=== PATIENT | male | born 1945 | race Caucasian/White ===

== ENCOUNTER → 2021-08-03 11:31 | Outpatient (CLI) | payer MEDICARE, SELFPAY ==
[2021-08-03 18:59] LABS: INR 1.2 (0.9-1.3); Prothrombin Time 13.9 SECONDS (10.1-12.7)
[2021-08-03 19:11] LABS: Alanine Aminotransferase 26 IU/L (<50); Albumin 3.7 g/dL (3.5-5.0); Albumin Globulin Ratio 1.2 (1.0-2.8); Alkaline Phosphatase 52 U/L (38-126); Aspartate Aminotransferase 42 IU/L (17-59); Bilirubin Total 2.4 mg/dL (0.2-1.3); Blood Urea Nitrogen 12 mg/dL (9-20); Calcium 8.7 mg/dL (8.4-10.2); Carbon Dioxide 27 mmol/L (22-32); Chloride 106 mmol/L (98-107); Eosinophils Percent Auto 2.3 % (2-4); Estimated Glomerular Filt Rate > 60.0 mL/min (>60); Globulin 3.2 g/dL (1.7-4.1); Glucose 106 mg/dL (80-110); HEMOLYSIS < 15 (0-50); Hematocrit 41.6 % (41-53); Hemoglobin 14.6 g/dL (13.5-17.5); Mean Corpuscular HGB Conc 35.2 % (30-36); Mean Corpuscular Hemoglobin 38.4 PG (26-34); Mean Corpuscular Volume 109.3 fL (80-100); Monocytes Percent Auto 9.5 % (3-14); Neutrophils Percent Auto 64.2 % (50-75); Platelet Count 122 X10^3/uL (150-400); Red Cell Distribution Width 17.6 % (11.6-14.8); Sodium 141 mmol/L (137-145); Total Protein 6.9 g/dL (6.3-8.2); White Blood Cell Count 2.4 X10^3/uL (4.5-11.0)
[2021-08-03 19:12] LABS: Add Manual Diff / Slide Review NO; Basophils Absolute Auto 0 /uL (0-100); Eosinophils Absolute Auto 100 /uL (0-450); Lymphocytes Absolute Auto 600 /uL (1100-4500); Monocytes Absolute Auto 200 /uL (0-900); Neutrophils Absolute Auto 1600 /uL (1500-7000)
[2021-08-03 19:14] LABS: Cholesterol 217 mg/dL (140-199); HDL Cholesterol 68 mg/dL (40-60); LDL Cholesterol Calculated 137 mg/dL (<100); Triglycerides 58 mg/dL (35-150)
[2021-08-03 19:16] LABS: Hemoglobin A1C% w Est Avg Glu 4.6 % (4.0-6.0)
[2021-08-03 19:51] LABS: Prostate Specific Antigen < 0.064 ng/mL (0.10-4.00)
[2021-08-05 13:10] LABS: Alpha Fetoprotein 3.1 ng/mL (0.0-8.4)
== END ==
PROVIDERS: Internal Medicine Gastroenterology; Family Provider Family Medicine; PCP Family Medicine
DX: K55.20 Angiodysplasia of colon without hemorrhage (principal); K70.30 Alcoholic cirrhosis of liver without ascites; I10 Essential (primary) hypertension; C61 Malignant neoplasm of prostate; Z79.899 Other long term (current) drug therapy; D12.2 Benign neoplasm of ascending colon; D12.0 Benign neoplasm of cecum; D12.4 Benign neoplasm of descending colon; Z86.010 Personal history of colon polyps; K62.1 Rectal polyp
CPT/HCPCS: 80053; 80061; 82105; 83036; 84153; 85025; 85610

== ENCOUNTER → 2022-04-16 08:55 | Outpatient (CLI) | payer MEDICARE, SELFPAY ==
[2022-04-16 20:14] LABS: Add Manual Diff / Slide Review NO; Basophils Absolute Auto 0 /uL (0-100); Basophils Percent Auto 0.7 % (0-2); Eosinophils Absolute Auto 0 /uL (0-450); Eosinophils Percent Auto 1.7 % (2-4); Hematocrit 40.3 % (41-53); Hemoglobin 14.3 g/dL (13.5-17.5); Lymphocytes Absolute Auto 500 /uL (1100-4500); Lymphocytes Percent Auto 18.7 % (25-40); Mean Corpuscular HGB Conc 35.6 % (30-36); Mean Corpuscular Hemoglobin 39.7 PG (26-34); Mean Corpuscular Volume 111.5 fL (80-100); Monocytes Absolute Auto 300 /uL (0-900); Neutrophils Absolute Auto 2000 /uL (1500-7000); Neutrophils Percent Auto 68.9 % (50-75); Platelet Count 127 X10^3/uL (150-400); Red Blood Cell Count 3.61 X10^6/uL (4.5-5.9); Red Cell Distribution Width 17.3 % (11.6-14.8); White Blood Cell Count 2.8 X10^3/uL (4.5-11.0)
[2022-04-16 20:26] LABS: Alanine Aminotransferase 25 IU/L (<50); Albumin 3.7 g/dL (3.5-5.0); Albumin Globulin Ratio 1.1 (1.0-2.8); Alkaline Phosphatase 57 U/L (38-126); Aspartate Aminotransferase 36 IU/L (17-59); BUN Creatinine Ratio 11.5 (6-22); Bilirubin Total 2.3 mg/dL (0.2-1.3); Blood Urea Nitrogen 7 mg/dL (9-20); Calcium 8.6 mg/dL (8.4-10.2); Carbon Dioxide 25 mmol/L (22-32); Chloride 108 mmol/L (98-107); Cholesterol 214 mg/dL (140-199); Estimated Glomerular Filt Rate > 60 mL/min (>60); Globulin 3.4 g/dL (1.7-4.1); Glucose 103 mg/dL (80-110); HDL Cholesterol 67 mg/dL (40-60); HEMOLYSIS < 15 (0-50); LDL Cholesterol Calculated 136 mg/dL (<100); Potassium 3.8 mmol/L (3.4-5.1); Sodium 140 mmol/L (137-145); Total Protein 7.1 g/dL (6.3-8.2); Triglycerides 53 mg/dL (35-150)
[2022-04-16 21:05] LABS: Macrocytosis 2+
[2022-04-16 21:12] LABS: Prostate Specific Antigen Scrn < 0.064 ng/mL (0.1-4.0)
== END ==
PROVIDERS: Family Provider Family Medicine; PCP Family Medicine; Visit Provider Family Medicine
DX: K70.30 Alcoholic cirrhosis of liver without ascites (principal); I10 Essential (primary) hypertension; Z12.5 Encounter for screening for malignant neoplasm of prostate; C61 Malignant neoplasm of prostate; F33.41 Major depressive disorder, recurrent, in partial remission; Z13.220 Encounter for screening for lipoid disorders; Z87.19 Personal history of other diseases of the digestive system
CPT/HCPCS: 80053; 80061; 85025; G0103

== ENCOUNTER → 2022-07-31 13:00 | Outpatient (CLI) | payer MEDICARE, SELFPAY ==
[2022-07-31 19:47] LABS: Add Manual Diff / Slide Review NO; Basophils Absolute Auto 0 /uL (0-100); Basophils Percent Auto 0.8 % (0-2); Eosinophils Absolute Auto 0 /uL (0-450); Eosinophils Percent Auto 0.7 % (2-4); Hematocrit 36.9 % (41-53); Hemoglobin 13.3 g/dL (13.5-17.5); Lymphocytes Absolute Auto 500 /uL (1100-4500); Lymphocytes Percent Auto 18.4 % (25-40); Mean Corpuscular HGB Conc 36.1 % (30-36); Mean Corpuscular Hemoglobin 40.1 PG (26-34); Mean Corpuscular Volume 111.3 fL (80-100); Monocytes Absolute Auto 300 /uL (0-900); Monocytes Percent Auto 11.3 % (3-14); Neutrophils Absolute Auto 1900 /uL (1500-7000); Neutrophils Percent Auto 68.8 % (50-75); Platelet Count 128 X10^3/uL (150-400); Red Blood Cell Count 3.31 X10^6/uL (4.5-5.9); Red Cell Distribution Width 16.3 % (11.6-14.8); White Blood Cell Count 2.8 X10^3/uL (4.5-11.0)
[2022-07-31 19:59] LABS: Alanine Aminotransferase 28 IU/L (<50); Albumin 3.3 g/dL (3.5-5.0); Albumin Globulin Ratio 1.1 (1.0-2.8); Alkaline Phosphatase 77 U/L (38-126); Aspartate Aminotransferase 45 IU/L (17-59); Bilirubin Total 1.8 mg/dL (0.2-1.3); Blood Urea Nitrogen 11 mg/dL (9-20); Calcium 8.5 mg/dL (8.4-10.2); Carbon Dioxide 22 mmol/L (22-32); Chloride 107 mmol/L (98-107); Cholesterol 170 mg/dL (140-199); Estimated Glomerular Filt Rate > 60 mL/min (>60); Glucose 144 mg/dL (80-110); HDL Cholesterol 52 mg/dL (40-60); HEMOLYSIS < 15 (0-50); LDL Cholesterol Calculated 96 mg/dL (<100); Sodium 137 mmol/L (137-145); Total Protein 6.3 g/dL (6.3-8.2); Triglycerides 111 mg/dL (35-150)
[2022-07-31 20:16] LABS: Macrocytosis 2+
[2022-07-31 20:17] LABS: Ovalocytes 1+
[2022-07-31 20:20] LABS: Free T4, Direct Thyroxine 1.11 ng/dL (0.78-2.19)
[2022-07-31 20:32] LABS: Prostate Specific Antigen < 0.064 ng/mL (0.10-4.00)
[2022-07-31 20:49] LABS: Vitamin B12 668 pg/mL (239-931)
== END ==
PROVIDERS: Family Provider Family Medicine; PCP Family Medicine; Visit Provider Family Medicine
DX: I10 Essential (primary) hypertension (principal); K70.30 Alcoholic cirrhosis of liver without ascites; Z85.46 Personal history of malignant neoplasm of prostate; D61.818 Other pancytopenia; F10.90 Alcohol use, unspecified, uncomplicated; F33.41 Major depressive disorder, recurrent, in partial remission; G70.00 Myasthenia gravis without (acute) exacerbation; Z13.220 Encounter for screening for lipoid disorders; Z87.19 Personal history of other diseases of the digestive system; Z90.6 Acquired absence of other parts of urinary tract; Z90.79 Acquired absence of other genital organ(s)
CPT/HCPCS: 80053; 80061; 82306; 82607; 84153; 84439; 85025

== ENCOUNTER → 2022-10-31 13:29 | Outpatient (CLI) | payer MEDICARE, SELFPAY ==
[2022-10-31 20:16] LABS: Add Manual Diff / Slide Review NO; Basophils Absolute Auto 0 /uL (0-100); Basophils Percent Auto 0.9 % (0-2); Eosinophils Absolute Auto 0 /uL (0-450); Eosinophils Percent Auto 0.6 % (2-4); Hematocrit 40.7 % (41-53); Hemoglobin 14.5 g/dL (13.5-17.5); Lymphocytes Absolute Auto 600 /uL (1100-4500); Lymphocytes Percent Auto 15.6 % (25-40); Mean Corpuscular HGB Conc 35.6 % (30-36); Mean Corpuscular Hemoglobin 39.7 PG (26-34); Mean Corpuscular Volume 111.6 fL (80-100); Monocytes Absolute Auto 400 /uL (0-900); Neutrophils Absolute Auto 2900 /uL (1500-7000); Neutrophils Percent Auto 71.9 % (50-75); Platelet Count 134 X10^3/uL (150-400); Red Blood Cell Count 3.64 X10^6/uL (4.5-5.9); Red Cell Distribution Width 17.1 % (11.6-14.8); White Blood Cell Count 4.1 X10^3/uL (4.5-11.0)
[2022-10-31 20:34] LABS: C-Reactive Protein Quant < 0.5 mg/dL (<1.0)
[2022-10-31 20:51] LABS: Erythrocyte Sedimentation Rate 7 MM/HR (0-15)
[2022-10-31 21:00] LABS: Anisocytosis 2+
[2022-10-31 21:01] LABS: Ovalocytes 1+; Polychromasia 1+
[2022-10-31 21:02] LABS: Burr Cells 1+
[2022-11-01 04:34] LABS: HEMOLYSIS < 15 (0-50); Iron 158 ug/dL (49-181)
[2022-11-01 04:36] LABS: Alanine Aminotransferase 29 IU/L (<50); Albumin 3.6 g/dL (3.5-5.0); Albumin Globulin Ratio 1.1 (1.0-2.8); Alkaline Phosphatase 84 U/L (38-126); Aspartate Aminotransferase 54 IU/L (17-59); Bilirubin Total 1.5 mg/dL (0.2-1.3); Bilirubin Unconjugated 1.3 mg/dL (0.0-1.1); Globulin 3.4 g/dL (1.7-4.1); HEMOLYSIS < 15 (0-50)
[2022-11-01 05:00] LABS: Percent Iron Saturation 49 % (20-50); Total Iron Binding Capacity 320 ug/dL (261-462); Transferrin 230 mg/dL (206-381)
[2022-11-01 05:06] LABS: Free T4, Direct Thyroxine 1.33 ng/dL (0.78-2.19)
[2022-11-01 05:45] LABS: Vitamin B12 859 pg/mL (239-931)
[2022-11-11 17:07] LABS: Percent Free Testosterone 1.92 % (1.50-4.20); Testosterone Free 12.55 ng/dL (5.00-21.00); Testosterone Total 653.9 ng/dL (264.0-916.0)
== END ==
PROVIDERS: Family Provider Family Medicine; PCP Family Medicine; Visit Provider Physician Assistant Medical
DX: G70.00 Myasthenia gravis without (acute) exacerbation (principal); I10 Essential (primary) hypertension; M70.32 Other bursitis of elbow, left elbow; D61.818 Other pancytopenia; F10.90 Alcohol use, unspecified, uncomplicated; K70.30 Alcoholic cirrhosis of liver without ascites
CPT/HCPCS: 80076; 82607; 83540; 83550; 84402; 84403; 84439; 85025; 85651; 86140

== ENCOUNTER → 2023-03-14 14:34 | Outpatient (CLI) | payer MEDICARE, SELFPAY ==
[2023-03-14 19:20] LABS: Alanine Aminotransferase 29 IU/L (<50); Albumin 3.4 g/dL (3.5-5.0); Albumin Globulin Ratio 1.1 (1.0-2.8); Alkaline Phosphatase 57 U/L (38-126); Aspartate Aminotransferase 39 IU/L (17-59); BUN Creatinine Ratio 19.7 (6-22); Bilirubin Total 2.3 mg/dL (0.2-1.3); Blood Urea Nitrogen 12 mg/dL (9-20); Calcium 9.3 mg/dL (8.4-10.2); Carbon Dioxide 25 mmol/L (22-32); Chloride 106 mmol/L (98-107); Estimated Glomerular Filt Rate > 60 mL/min (>60); Globulin 3.2 g/dL (1.7-4.1); Glucose 113 mg/dL (80-110); HEMOLYSIS < 15 (0-50); Potassium 3.9 mmol/L (3.4-5.1); Sodium 137 mmol/L (137-145); Total Protein 6.6 g/dL (6.3-8.2)
[2023-03-14 20:19] LABS: Add Manual Diff / Slide Review NO; Basophils Absolute Auto 0 /uL (0-100); Basophils Percent Auto 0.6 % (0-2); Eosinophils Absolute Auto 0 /uL (0-450); Eosinophils Percent Auto 0.4 % (2-4); Hematocrit 37.8 % (41-53); Hemoglobin 13.6 g/dL (13.5-17.5); Lymphocytes Absolute Auto 600 /uL (1100-4500); Lymphocytes Percent Auto 19.3 % (25-40); Mean Corpuscular Hemoglobin 40.9 PG (26-34); Mean Corpuscular Volume 113.9 fL (80-100); Monocytes Absolute Auto 300 /uL (0-900); Monocytes Percent Auto 8.5 % (3-14); Neutrophils Absolute Auto 2300 /uL (1500-7000); Neutrophils Percent Auto 71.2 % (50-75); Platelet Count 134 X10^3/uL (150-400); Red Blood Cell Count 3.32 X10^6/uL (4.5-5.9); Red Cell Distribution Width 17.7 % (11.6-14.8); White Blood Cell Count 3.3 X10^3/uL (4.5-11.0)
[2023-03-14 20:40] LABS: Anisocytosis 1+; Macrocytosis 1+
== END ==
PROVIDERS: Family Provider Family Medicine; PCP Family Medicine; Visit Provider Family Medicine
DX: K70.30 Alcoholic cirrhosis of liver without ascites (principal); I85.00 Esophageal varices without bleeding; F10.90 Alcohol use, unspecified, uncomplicated; D61.818 Other pancytopenia; Z87.19 Personal history of other diseases of the digestive system; I10 Essential (primary) hypertension
CPT/HCPCS: 80053; 85025

== ENCOUNTER → 2023-06-03 12:07 | Outpatient (CLI) | payer MEDICARE, SELFPAY ==
--- NOTE | 2023-06-03 12:10 | DI.US.S_ITS ---
PROCEDURE: US ABDOMEN LIMITED INDICATIONS: Unspecified cirrhosis of liver TECHNIQUE: Real-time scanning was performed of the abdominal and retroperitoneal organs, with image documentation. COMPARISON: None. FINDINGS: Liver: Liver is normal in size with coarsened echotexture and mildly diffuse increased echogenicity. A TIPS stent is seen extending from the right portal vein to the right hepatic vein. Doppler flow is seen within the proximal portion of the stent, but the remainder of the stent is not well evaluated. No focal hepatic mass. Surface nodularity is not definitely demonstrated. Gallbladder: No gallstones. No wall thickening. No pericholecystic edema. Negative sonographic Gonzalez's sign. Biliary ducts: Intrahepatic bile ducts are non-dilated. Extrahepatic bile duct caliber measures 6 mm. Normal is 6-7 mm or less in diameter, or 10 mm or less post-cholecystectomy. Pancreas: Not well visualized due to overlying bowel gas. Miscellaneous: No free right upper quadrant fluid. IMPRESSION: 1. Coarsened echotexture and diffusely increased hepatic echogenicity are nonspecific, but most commonly encountered in the setting of hepatic steatosis. However, other causes of hepatocellular disease including cirrhosis are not excluded. Recommend clinical correlation. 2. No focal hepatic mass. 3. TIPS stent is present, although flow within the stent is not well evaluated on this exam. Approved by: Rick Ac M.D. on 06/03/2023 at 16:31
== END ==
PROVIDERS: Family Provider Family Medicine; PCP Family Medicine; Referring Provider Family Medicine; Visit Provider Family Medicine
DX: K74.60 Unspecified cirrhosis of liver (principal); Z86.010 Personal history of colon polyps
CPT/HCPCS: 76705

== ENCOUNTER → 2023-07-02 10:49 | Outpatient (CLI) | payer MEDICARE, SELFPAY ==
[2023-07-02 18:51] LABS: INR 1.3 (0.9-1.3); Prothrombin Time 14.6 SECONDS (9.4-12.5)
[2023-07-02 19:05] LABS: Alanine Aminotransferase 30 IU/L (<50); Albumin 3.3 g/dL (3.5-5.0); Albumin Globulin Ratio 1.1 (1.0-2.8); Alkaline Phosphatase 59 U/L (38-126); Aspartate Aminotransferase 48 IU/L (17-59); BUN Creatinine Ratio 12.5 (6-22); Bilirubin Total 2.1 mg/dL (0.2-1.3); Blood Urea Nitrogen 7 mg/dL (9-20); Carbon Dioxide 29 mmol/L (22-32); Chloride 108 mmol/L (98-107); Estimated Glomerular Filt Rate > 60 mL/min (>60); Globulin 3.1 g/dL (1.7-4.1); Glucose 111 mg/dL (80-110); HEMOLYSIS < 15 (0-50); Potassium 3.9 mmol/L (3.4-5.1); Sodium 141 mmol/L (137-145); Total Protein 6.4 g/dL (6.3-8.2)
[2023-07-02 19:58] LABS: Add Manual Diff / Slide Review NO; Basophils Absolute Auto 0 /uL (0-100); Basophils Percent Auto 0.7 % (0-2); Eosinophils Absolute Auto 0 /uL (0-450); Hematocrit 38.9 % (41-53); Hemoglobin 13.7 g/dL (13.5-17.5); Lymphocytes Absolute Auto 500 /uL (1100-4500); Lymphocytes Percent Auto 22.8 % (25-40); Mean Corpuscular HGB Conc 35.4 % (30-36); Mean Corpuscular Hemoglobin 40.2 PG (26-34); Mean Corpuscular Volume 113.8 fL (80-100); Monocytes Absolute Auto 200 /uL (0-900); Monocytes Percent Auto 9.7 % (3-14); Neutrophils Absolute Auto 1500 /uL (1500-7000); Neutrophils Percent Auto 65.8 % (50-75); Platelet Count 131 X10^3/uL (150-400); Red Blood Cell Count 3.42 X10^6/uL (4.5-5.9); Red Cell Distribution Width 16.4 % (11.6-14.8); White Blood Cell Count 2.3 X10^3/uL (4.5-11.0)
[2023-07-02 20:33] LABS: Macrocytosis 1+
[2023-07-05 01:06] LABS: Alpha Fetoprotein 4.7 ng/mL (0.0-8.4)
== END ==
PROVIDERS: Family Provider Family Medicine; PCP Family Medicine; Visit Provider Physician Assistant
DX: K74.60 Unspecified cirrhosis of liver (principal); Z86.010 Personal history of colon polyps
CPT/HCPCS: 80053; 82105; 85025; 85610

== ENCOUNTER → 2023-09-24 10:39 | Outpatient (CLI) | payer MEDICARE, SELFPAY ==
[2023-09-24 19:59] LABS: Alanine Aminotransferase 25 IU/L (<50); Albumin 3.5 g/dL (3.5-5.0); Albumin Globulin Ratio 1.3 (1.0-2.8); Alkaline Phosphatase 64 U/L (38-126); Aspartate Aminotransferase 45 IU/L (17-59); Bilirubin Total 2.5 mg/dL (0.2-1.3); Bilirubin Unconjugated 2.2 mg/dL (0.0-1.1); Globulin 2.6 g/dL (1.7-4.1); HEMOLYSIS 16 (0-50); Total Protein 6.1 g/dL (6.3-8.2)
[2023-09-24 20:02] LABS: Add Manual Diff / Slide Review NO; Basophils Absolute Auto 0 /uL (0-100); Basophils Percent Auto 0.6 % (0-2); Eosinophils Absolute Auto 0 /uL (0-450); Eosinophils Percent Auto 0.5 % (2-4); Hematocrit 36.3 % (41-53); Lymphocytes Absolute Auto 500 /uL (1100-4500); Lymphocytes Percent Auto 22.4 % (25-40); Mean Corpuscular Hemoglobin 39.9 PG (26-34); Mean Corpuscular Volume 110.8 fL (80-100); Monocytes Absolute Auto 300 /uL (0-900); Monocytes Percent Auto 11.2 % (3-14); Neutrophils Absolute Auto 1500 /uL (1500-7000); Neutrophils Percent Auto 65.3 % (50-75); Platelet Count 142 X10^3/uL (150-400); Red Blood Cell Count 3.27 X10^6/uL (4.5-5.9); Red Cell Distribution Width 17.1 % (11.6-14.8); White Blood Cell Count 2.3 X10^3/uL (4.5-11.0)
[2023-09-24 20:30] LABS: Macrocytosis 2+
== END ==
PROVIDERS: Family Provider Family Medicine; PCP Family Medicine; Visit Provider Family Medicine
DX: D61.818 Other pancytopenia (principal)
CPT/HCPCS: 80076; 85025

== ENCOUNTER → 2023-12-20 16:03 | Outpatient (CLI) | payer MEDICARE, SELFPAY ==
--- NOTE | 2023-12-20 16:04 | DI.US.S_ITS ---
PROCEDURE: US ABDOMEN LIMITED INDICATIONS: CIRROSIS,ESOPHAGEAL VARICES TECHNIQUE: Real-time scanning was performed of the abdominal and retroperitoneal organs, with image documentation. COMPARISON: [facility], , US ABDOMEN LIMITED, 06/03/2023, 12:18. FINDINGS: Liver: Measures 16.1 cm. Increased in echogenicity. Tips shunt from a right posterior vein to right hepatic vein. Proximal velocity 33 cm/sec, mid 144 cm/sec, distal 79 cm/sec. Flow is hepatopetal. Gallbladder: No gallstones. No wall thickening. No pericholecystic edema. Negative sonographic Gonzalez's sign. Biliary ducts: Intrahepatic bile ducts are non-dilated. Extrahepatic bile duct caliber measures 4 mm. Normal is 6-7 mm or less in diameter, or 10 mm or less post-cholecystectomy. Pancreas: Not well seen due to overlying bowel gas. Spleen: Measures 15.7 x 13.7 x 4.9 cm. Miscellaneous: No free abdominal fluid. IMPRESSION: Exam is technically difficult. 1. Cirrhosis. Splenomegaly. No ascites seen. 2. Tips shunt is patent demonstrating hepatopetal flow. There is elevated velocities in the mid TIPS shunt. 3. No acute cholecystitis. No gallstones. Dictated by: Jose Juan Briones M.D. on 12/21/2023 at 10:23 Approved by: Jose Juan Briones M.D. on 12/21/2023 at 10:28
== END ==
LOC: US 16:04
PROVIDERS: Family Provider Family Medicine; PCP Family Medicine; Referring Provider Physician Assistant; Visit Provider Physician Assistant
DX: K74.60 Unspecified cirrhosis of liver (principal); I85.00 Esophageal varices without bleeding; R16.1 Splenomegaly, not elsewhere classified
CPT/HCPCS: 76705

== ENCOUNTER → 2024-04-06 09:12 | Outpatient (CLI) | payer MEDICARE, SELFPAY ==
--- NOTE | 2024-04-06 09:13 | DI.US.S_ITS ---
PROCEDURE: US ABDOMEN LIMITED INDICATIONS: CIRRHOSIS OF LIVER TECHNIQUE: Real-time focused scanning was performed of the abdomen, with image documentation. COMPARISON: [facility], [place], US ABDOMEN LIMITED, 12/20/2023, 16:14. FINDINGS: Cirrhotic liver. Liver measures 16 cm. Heterogeneous increased echogenicity. Main portal vein is hepatopetal, measuring 18 centimeters/second. TIPS in place, proximal aspect measures 46 centimeters/second. Mid to distal aspect velocity measures 149 centimeters/second Gallbladder is unremarkable. CBD measures 5 mm, within normal limits. No pathologic free fluid. IVC is patent. IMPRESSION: TIPS in place. Velocity in the main portal venous inflow and proximal aspect remain low. More focal increased velocity is seen at the mid to distal aspect at a curvature. Maximal velocity at this area similar to prior. No pathologic free fluid. Main portal vein inflow is hepatopetal. Heterogeneous increased hepatic echotexture compatible with reported cirrhosis. Dictated by: Sudarshan Brooks M.D. on 04/06/2024 at 14:44 Approved by: Sudarshan Brooks M.D. on 04/06/2024 at 14:47
== END ==
LOC: US 09:12
PROVIDERS: Family Provider Family Medicine; PCP Family Medicine; Referring Provider Physician Assistant; Visit Provider Physician Assistant
DX: K74.60 Unspecified cirrhosis of liver (principal); I85.00 Esophageal varices without bleeding
CPT/HCPCS: 76705; 93976

== ENCOUNTER → 2024-04-15 10:41 | Outpatient (CLI) | payer MEDICARE, SELFPAY ==
[2024-04-15 11:30] LABS: NT-proBNP (BNP-Adult 18+) 148 pg/mL (<450)
[2024-04-15 12:02] LABS: Erythrocyte Sedimentation Rate 37 MM/HR (0-15)
== END ==
PROVIDERS: Family Provider Family Medicine; PCP Family Medicine; Referring Provider Family Medicine; Visit Provider Family Medicine
DX: R06.02 Shortness of breath (principal); R05.3 Chronic cough; L03.116 Cellulitis of left lower limb; K70.30 Alcoholic cirrhosis of liver without ascites; D61.818 Other pancytopenia; Z95.828 Presence of other vascular implants and grafts
CPT/HCPCS: 36415; 83880; 85651

== ENCOUNTER → 2024-05-21 13:31 | Outpatient (CLI) | payer MEDICARE, SELFPAY ==
[2024-05-21 19:15] LABS: Basophils Absolute Auto 0 /uL (0-100); Basophils Percent Auto 0.7 % (0-2); Eosinophils Absolute Auto 0 /uL (0-450); Eosinophils Percent Auto 0.3 % (2-4); Hemoglobin 13.9 g/dL (13.5-17.5); Lymphocytes Absolute Auto 600 /uL (1100-4500); Lymphocytes Percent Auto 23.5 % (25-40); Mean Corpuscular HGB Conc 35.6 % (30-36); Mean Corpuscular Hemoglobin 39.3 PG (26-34); Mean Corpuscular Volume 110.5 fL (80-100); Monocytes Absolute Auto 300 /uL (0-900); Monocytes Percent Auto 11.2 % (3-14); Neutrophils Absolute Auto 1700 /uL (1500-7000); Neutrophils Percent Auto 64.3 % (50-75); Platelet Count 160 X10^3/uL (150-400); Red Blood Cell Count 3.53 X10^6/uL (4.5-5.9); Red Cell Distribution Width 17.2 % (11.6-14.8); White Blood Cell Count 2.6 X10^3/uL (4.5-11.0)
[2024-05-21 19:16] LABS: Add Manual Diff / Slide Review SLIDE REVIEW
[2024-05-21 19:20] LABS: HEMOLYSIS < 15 (0-50); Iron 210 ug/dL (49-181)
[2024-05-21 19:26] LABS: Alanine Aminotransferase 27 IU/L (<50); Albumin 3.8 g/dL (3.5-5.0); Albumin Globulin Ratio 1.1 (1.0-2.8); Alkaline Phosphatase 62 U/L (38-126); Aspartate Aminotransferase 57 IU/L (17-59); Bilirubin Total 2.3 mg/dL (0.2-1.3); Globulin 3.4 g/dL (1.7-4.1); HEMOLYSIS < 15 (0-50); Total Protein 7.2 g/dL (6.3-8.2)
[2024-05-21 19:27] LABS: Alanine Aminotransferase 27 IU/L (<50); Albumin 3.9 g/dL (3.5-5.0); Albumin Globulin Ratio 1.2 (1.0-2.8); Alkaline Phosphatase 63 U/L (38-126); Aspartate Aminotransferase 59 IU/L (17-59); BUN Creatinine Ratio 14.3 (6-22); Bilirubin Total 2.4 mg/dL (0.2-1.3); Blood Urea Nitrogen 9 mg/dL (9-20); Calcium 9.1 mg/dL (8.4-10.2); Carbon Dioxide 26 mmol/L (22-32); Chloride 107 mmol/L (98-107); Estimated Glomerular Filt Rate > 60 mL/min (>60); Globulin 3.3 g/dL (1.7-4.1); Glucose 111 mg/dL (80-110); HEMOLYSIS 20 (0-50); INR 1.4 (0.9-1.3); Prothrombin Time 15.8 SECONDS (9.4-12.5); Sodium 139 mmol/L (137-145); Total Protein 7.2 g/dL (6.3-8.2)
[2024-05-21 19:34] LABS: Percent Iron Saturation 96 % (20-50); Total Iron Binding Capacity 218 ug/dL (261-462); Transferrin 191 mg/dL (206-381)
[2024-05-21 20:06] LABS: Anisocytosis 2+; Macrocytosis 2+
[2024-05-21 20:07] LABS: Acanthocytes 1+; Ovalocytes 2+
[2024-05-21 20:09] LABS: Rouleaux 1+
[2024-05-21 20:10] LABS: Vitamin B12 > 1000 pg/mL (239-931)
[2024-05-23 07:13] LABS: Alpha Fetoprotein 5.1 ng/mL (0.0-8.4)
== END ==
PROVIDERS: Family Provider Family Medicine; PCP Family Medicine; Visit Provider Physician Assistant
DX: K21.9 Gastro-esophageal reflux disease without esophagitis (principal); Z86.0100 Personal history of colon polyps, unspecified; D61.818 Other pancytopenia; F10.90 Alcohol use, unspecified, uncomplicated; K70.30 Alcoholic cirrhosis of liver without ascites
CPT/HCPCS: 80053; 80076; 82105; 82607; 83540; 83550; 85025; 85610

== ENCOUNTER 2024-09-12 15:32 | Observation (INO) | payer MEDICARE, SELFPAY ==
[2024-09-12] VITALS (10 sets, daily range): BP systolic 139–176; BP diastolic 67–95; PULSE 67–92; RESP 16–32; TEMP 36.6–37.1; O2SAT 94–98; BMI 31.5
--- NOTE | 2024-09-12 15:48 | DI.CT.S_ITS ---
PROCEDURE: CT TRAUMA CHEST ABDOMEN PELVIS INDICATIONS: 7ft fall onto l side 2D [employer]; chest wall pain TECHNIQUE: MDCT axial chest images were obtained with IV contrast in the arterial phase. Maximum intensity projections and multiplanar reformats were obtained. MDCT axial abdomen and pelvis images were obtained with IV contrast in the portal venous phase. Multiplanar reformats were obtained. Optional delayed phase scanning may also be obtained Advanced techniques were used to lower patient radiation exposure. COMPARISON: [facility], , US ABDOMEN LIMITED, 04/06/2024, 10:22. FINDINGS Image Quality: There is streak artifact seen through the level of the shoulders. Chest: Lungs and pleura: There is a mild left-sided hemothorax seen, associated atelectasis. No pneumothorax. No pulmonary contusions or lacerations. No solid pulmonary nodule requiring follow-up. Vascular: No dissection or pseudoaneurysm. No incidental central pulmonary embolism. No hemopericardium. Mediastinum: No mediastinum hematoma. No suspicious mass or lymph nodes. No actionable thyroid nodules. Advanced coronary artery calcification can be seen. A small hiatal hernia is incidentally noted. Chest wall: Several mildly displaced left-sided rib fractures are seen. Intact clavicles, scapula, and glenohumeral joint. Thoracic spine: No acute fracture or traumatic subluxation. Accentuated thoracic kyphosis is seen. ABDOMEN and PELVIS: Liver: No laceration or capsular hematoma. A TIPS catheter is seen. Low-density lesions can be seen within the liver, with the largest measuring 9 mm. Gallbladder: Unremarkable. Biliary system: Non-dilated. Pancreas: Unremarkable. Spleen: No laceration or capsular hematoma. Adrenals: No suspicious nodules. Kidneys: No contrast extravasation or hydronephrosis. No solid masses. Vessels and lymph nodes: No pathology lymph nodes by size criteria. No dissection or aneurysm. No retroperitoneal hematoma. Apparent coils can be seen within the left quadrant. Atherosclerotic calcification is noted. Bowel and peritoneum: No suspicious region of mesenteric hemorrhage or hemoperitoneum. No bowel obstruction. Colonic diverticulosis is seen, without findings of active diverticulitis. Pelvis: Unremarkable bladder. Prostatectomy with lymph node dissection clips can be seen. Bilateral fat containing inguinal hernias are seen. Pelvic ring and femurs: No pelvic ring disruption. No hip fractures. Lumbar spine: No acute fracture or traumatic subluxation. Mild levoconvex scoliotic curvature is noted. Generalized lumbar spine degenerative change can be seen. A unilateral L5 pars defect is seen on the right. Abdominal wall: No drainable fluid collection or hematoma. IMPRESSION: Several mildly displaced left-sided rib fractures are seen, with associated overlying atelectasis. Small low-density lesions can be seen within the liver, likely representing cysts, although too small to definitively characterize. Additional findings: Advanced coronary artery calcification Small hiatal hernia TIPS catheter Left upper quadrant apparent coils Levoconvex lumbar scoliotic curvature Generalized lumbar spine degenerative change Diverticulosis, without active diverticulitis Unilateral right L5 pars defect Prostatectomy with lymph node dissection clips Bilateral fat containing inguinal hernias Dictated by: Polo Garcia M.D. on 09/12/2024 at 15:47 Approved by: Polo Garcia M.D. on 09/12/2024 at 15:54
[2024-09-12] MEDS: fentaNYL 100 MCG/2 ML INJ 25 MCG IV ×2 (15:56→17:58)
--- NOTE | 2024-09-12 16:00 | ED.FALL ---
HPI - Fall <Samantha Carroll PA-C - Last Filed: 09/12/24 19:09> General Chief Complaint: Fall Stated Complaint: Fall Time Seen by Provider: 09/12/24 15:55 Source: patient and EMS Mode of arrival: EMS History of Present Illness HPI Narrative: 79-year-old male with a history of cirrhosis, hypertension, TIPS procedure 2018, lumbar laminectomy presents with concern for left-sided rib pain since he had a fall 2 days ago from a ladder. Patient states he was working up on a roof and things were a bit radha. The roof he was on was 7 ft in height but he was standing on the 2nd from the top rung of the ladder he believes his feet were at about 6 ft of height when he fell when the ladder slipped out from under him. He landed on grass on his left side. He states he did not hit his head or lose consciousness. He was able to get assistance and ambulate into his home and has pretty much been in bed since then, using a urinal and has been taking some oxycodone that he had ?lying around?. He was hoping things would improve but his pain has persisted/worsened and he requested EMS today on [facility] and was transferred to [facility]. His pain is fairly constant but intermittently spasmodic and intense up to 7/10. After the fentanyl he received from the flight crew he states his pain is down to a 3/10--except for the intermittent intense pain. He says in 2018 he had been heavily drinking for about 15 years and had a ?blood vessel rupture in my stomach? and that he has cirrhosis and poor liver function from this. He has not had any alcohol since 2018. He states he has been eating and trying to stay hydrated. He denies any abdominal pain neck pain head pain, vision change, nausea, vomiting, numbness or tingling of extremities or any other pain or symptoms Onset (ago): day(s) (2) Related Data Home Medications Medication Instructions Recorded Confirmed ferrous sulfate 325 mg (65 mg 325 mg PO DAILY 04/01/24 04/10/24 iron) tablet (Feosol) azathioprine 50 mg tablet 200 mg PO DAILY 04/10/24 09/13/24 Previous Rx's Medication Instructions Recorded omeprazole 20 mg capsule,delayed 20 mg PO DAILY #90 caps 01/29/22 release escitalopram oxalate 10 mg tablet See Rx Instructions .Route 01/31/23 .COMPLEX #90 tabs amlodipine 10 mg tablet 10 mg PO DAILY for blood pressure 07/20/24 #90 tabs Allergies Allergy/AdvReac Type Severity Reaction Status Date / Time No Known Drug Allergies Allergy Verified 09/12/24 15:44 Review of Systems <Samantha Carroll PA-C - Last Filed: 09/12/24 19:09> Review of Systems Narrative: See HPI Patient History <Samantha Carroll PA-C - Last Filed: 09/12/24 19:09> Medical History Cellulitis of right knee Elevated blood pressure reading Encounter for screening colonoscopy History of colon polyps Left elbow pain Pain and swelling of right knee Routine general medical examination at a [facility] care facility Surgical History Anesthesia History of nasal surgery Status post discectomy (07/13/14) Status post laminectomy (07/13/14) Status post radical cystoprostatectomy Family History Father Cancer History of heart disease Social History Smoking Status: Never smoker alcohol intake: former Smoking Status: Former smoker Exam <Samantha Carroll PA-C - Last Filed: 09/12/24 19:09> Narrative Exam Narrative: GENERAL: [79] year old patient appears stated age. Well-developed patient, in mild distress. HEAD: Atraumatic. Normocephalic. EYES: Pupils equal round and reactive. Extraocular motions intact. No scleral icterus. No injection or drainage. ENT: Nose without bleeding, purulent drainage. Throat without erythema, tonsillar hypertrophy or exudate. Airway patent. NECK: Trachea midline. Non tender CARDIOVASCULAR/CHEST WALL: Regular rate and rhythm without murmurs, gallops, or rubs. The left chest wall at the axilla and proximally ribs 4 through 7 is extremely tender with palpation. No crepitus noted. RESPIRATORY: Slightly tachypneic, there are crackles/fluid in the left lung base with air movement present; otherwise clear to auscultation and moving air all reeves. No wheezes, or rhonchi. GASTROINTESTINAL: Abdomen soft, protuberant, non-tender, nondistended--there is a yellowish bruise on the right upper abdomen that is nontender. EXTREMITIES: No edema or joint tenderness; distal pulses intact moving all extremities. BACK: No midline spinous process tenderness step-off or deformity. Nontender without deformity or crepitance. No flank tenderness. NEURO: AOx3. SKIN: No rash or erythema of visible areas Initial Vital Signs Initial Vital Signs: Vital Signs Pulse Rate 80 09/12/24 15:43 Respiratory Rate 25 H 09/12/24 15:43 Pulse Oximetry 95 09/12/24 15:43 <Analilia Raphael DO - Last Filed: 09/13/24 07:39> Initial Vital Signs Initial Vital Signs: Vital Signs Pulse Rate 80 09/12/24 15:43 Respiratory Rate 25 H 09/12/24 15:43 Pulse Oximetry 95 09/12/24 15:43 Course <Samantha Carroll PA-C - Last Filed: 09/12/24 19:09> Course Course Narrative: Given presence of mild hemothorax and multiple rib fractures and significant pain, Spoke with Dr. Arango regarding bringing this patient in here versus transfer. He will review CT and call back. Decision to Admit Date: 09/12/24 Decision to Admit time: 17:37 Additional Information: Spoke with Dr. Arango again and after reviewing CT he is comfortable bringing this patient in here under observation and for pain control with a hospitalist consult. He will put in orders. 1736 Spoke with the hospitalist, Dr. Sorto who will also see the patient. Orders Ordered: Albuterol/Ipratropium (Albuterol/Ipratropium 3 Ml Ampul) 3 ml INH RTBID MAURICIO Last Admin: 09/12/24 22:23 Dose: Not Given Documented By: PV Amlodipine Besylate (Amlodipine 5 Mg Tablet) 10 mg PO DAILY [facility]URICIO Azathioprine (Azathioprine 50 Mg Tablet) 200 mg PO DAILY MAURICIO Escitalopram Oxalate (Escitalopram 10 Mg Tablet) 10 mg PO DAILY MAURICIO Hydromorphone HCl (Hydromorphone 0.5 Mg Inj) 0.5 mg IV Q2H PRN PRN Reason: Pain, Severe (7-10) Last Admin: 09/12/24 21:05 Dose: 0.5 mg Documented By: YONG Ibuprofen (Ibuprofen 600 Mg Tablet) 600 mg PO Q6H PRN PRN Reason: Fever/Mild Pain (1-3) Naloxone HCl (Naloxone 0.4 Mg/Ml Vial) 0.2 mg IV Q2MIN PRN PRN Reason: Opiate Reversal Ondansetron HCl (Ondansetron 4 Mg/2 Ml Inj) 4 mg IV Q8HR PRN PRN Reason: Nausea And Vomiting Oxycodone HCl (Oxycodone Ir 5 Mg Tablet) 5 mg PO Q3H PRN PRN Reason: Pain, Moderate (4-6) Last Admin: 09/13/24 05:12 Dose: 5 mg Documented By: Admin: 09/12/24 23:58 Dose: 5 mg Documented By: DERRELL Oxycodone HCl (Oxycodone Ir 10 Mg Tablet) 10 mg PO Q3H PRN PRN Reason: Pain, Severe (7-10) Pantoprazole Sodium (Pantoprazole Dr 20 Mg Tablet) 20 mg PO 0600 [facility] Last Admin: 09/13/24 05:10 Dose: 20 mg Documented By: DERRELL Discontinued Medications Escitalopram Oxalate (Escitalopram 10 Mg Tablet) 0 mg PO .COMPLEX MAURICIO Fentanyl (Fentanyl 100 Mcg/2 Ml Inj) 25 mcg IV Q1H PRN PRN Reason: pain Last Admin: 09/12/24 17:58 Dose: 25 mcg Documented By: Admin: 09/12/24 15:56 Dose: 25 mcg Documented By: JOSEPH Sodium Chloride (Normal Saline 0.9%) 500 mls @ 500 mls/hr IV BOLUS ONE Stop: 09/12/24 17:38 Last Infusion: 09/12/24 17:44 Dose: Infused Documented By: Admin: 09/12/24 17:08 Dose: 500 mls/hr Documented By: JOSEPH Lorazepam (Lorazepam 0.5 Mg Tablet) 1 mg PO NOW ONE Stop: 09/12/24 15:57 Last Admin: 09/12/24 16:20 Dose: 1 mg Documented By: JOSEPH Non-Formulary Medication (Omeprazole) 20 mg PO DAILY [facility] Vital Signs Vital signs: Vital Signs - 8 hr 09/12/24 15:43 09/12/24 15:44 09/12/24 16:00 Temperature 97.8 F Pulse Rate 80 70 68 Respiratory Rate 25 H 16 25 H Blood Pressure 176/81 H Pulse Oximetry 95 98 95 Oxygen Delivery Method Room Air 09/12/24 16:01 09/12/24 16:01 09/12/24 16:30 Temperature Pulse Rate 67 76 Respiratory Rate 24 18 Blood Pressure 160/75 H Pulse Oximetry 94 94 Oxygen Delivery Method 09/12/24 16:32 09/12/24 16:32 09/12/24 17:00 Temperature Pulse Rate 75 75 Respiratory Rate 21 21 Blood Pressure 161/77 H Pulse Oximetry 94 95 Oxygen Delivery Method 09/12/24 17:00 09/12/24 17:30 09/12/24 17:30 Temperature Pulse Rate 92 H Respiratory Rate 32 H Blood Pressure 147/71 H 156/95 H Pulse Oximetry Oxygen Delivery Method <Analilia Raphael, - Last Filed: 09/13/24 07:39> Orders Ordered: Albuterol/Ipratropium (Albuterol/Ipratropium 3 Ml Ampul) 3 ml INH RTBID [facility] Last Admin: 09/12/24 22:23 Dose: Not Given Documented By: PV Amlodipine Besylate (Amlodipine 5 Mg Tablet) 10 mg PO DAILY [facility] Azathioprine (Azathioprine 50 Mg Tablet) 200 mg PO DAILY [facility] Escitalopram Oxalate (Escitalopram 10 Mg Tablet) 10 mg PO DAILY [facility] Hydromorphone HCl (Hydromorphone 0.5 Mg Inj) 0.5 mg IV Q2H PRN PRN Reason: Pain, Severe (7-10) Last Admin: 09/12/24 21:05 Dose: 0.5 mg Documented By: YONG Ibuprofen (Ibuprofen 600 Mg Tablet) 600 mg PO Q6H PRN PRN Reason: Fever/Mild Pain (1-3) Naloxone HCl (Naloxone 0.4 Mg/Ml Vial) 0.2 mg IV Q2MIN PRN PRN Reason: Opiate Reversal Ondansetron HCl (Ondansetron 4 Mg/2 Ml Inj) 4 mg IV Q8HR PRN PRN Reason: Nausea And Vomiting Oxycodone HCl (Oxycodone Ir 5 Mg Tablet) 5 mg PO Q3H PRN PRN Reason: Pain, Moderate (4-6) Last Admin: 09/13/24 05:12 Dose: 5 mg Documented By: Admin: 09/12/24 23:58 Dose: 5 mg Documented By: SH Oxycodone HCl (Oxycodone Ir 10 Mg Tablet) 10 mg PO Q3H PRN PRN Reason: Pain, Severe (7-10) Pantoprazole Sodium (Pantoprazole Dr 20 Mg Tablet) 20 mg PO 0600 [facility] Last Admin: 09/13/24 05:10 Dose: 20 mg Documented By: SH Discontinued Medications Escitalopram Oxalate (Escitalopram 10 Mg Tablet) 0 mg PO .COMPLEX MAURICIO Fentanyl (Fentanyl 100 Mcg/2 Ml Inj) 25 mcg IV Q1H PRN PRN Reason: pain Last Admin: 09/12/24 17:58 Dose: 25 mcg Documented By: Admin: 09/12/24 15:56 Dose: 25 mcg Documented By: MPO Sodium Chloride (Normal Saline 0.9%) 500 mls @ 500 mls/hr IV BOLUS ONE Stop: 09/12/24 17:38 Last Infusion: 09/12/24 17:44 Dose: Infused Documented By: Admin: 09/12/24 17:08 Dose: 500 mls/hr Documented By: MPO Lorazepam (Lorazepam 0.5 Mg Tablet) 1 mg PO NOW ONE Stop: 09/12/24 15:57 Last Admin: 09/12/24 16:20 Dose: 1 mg Documented By: MPO Non-Formulary Medication (Omeprazole) 20 mg PO DAILY [facility] Vital Signs Vital signs: Vital Signs - 8 hr 09/12/24 15:43 09/12/24 15:44 09/12/24 16:00 Temperature 97.8 F Pulse Rate 80 70 68 Respiratory Rate 25 H 16 25 H Blood Pressure 176/81 H Pulse Oximetry 95 98 95 Oxygen Delivery Method Room Air 09/12/24 16:01 09/12/24 16:01 09/12/24 16:30 Temperature Pulse Rate 67 76 Respiratory Rate 24 18 Blood Pressure 160/75 H Pulse Oximetry 94 94 Oxygen Delivery Method 09/12/24 16:32 09/12/24 16:32 09/12/24 17:00 Temperature Pulse Rate 75 75 Respiratory Rate 21 21 Blood Pressure 161/77 H Pulse Oximetry 94 95 Oxygen Delivery Method 09/12/24 17:00 09/12/24 17:30 09/12/24 17:30 Temperature Pulse Rate 92 H Respiratory Rate 32 H Blood Pressure 147/71 H 156/95 H Pulse Oximetry Oxygen Delivery Method MDM - Fall <Samantha Carorll PA-C - Last Filed: 09/12/24 19:09> Differential Diagnosis Differential diagnosis: Likely other (Multiple rib fractures, hemothorax, pulmonary contusion, fall from ladder) Lab Data Attestation: I reviewed the patient's lab results. 09/13/24 05:04 09/13/24 05:04 Labs: Lab Results 09/12/24 09/12/24 Range/Units 15:45 17:33 WBC 7.2 (4.5-11.0) X10^3/uL RBC 3.68 L (4.5-5.9) X10^6/uL Hgb 14.7 (13.5-17.5) g/dL Hct 40.6 L (41-53) % MCV 110.4 H (80-100) fL MCH 40.1 H (26-34) PG MCHC 36.3 H (30-36) % RDW 16.9 H (11.6-14.8) % Plt Count 129 L (150-400) X10^3/uL Neut % (Auto) 84.5 H (50-75) % Lymph % (Auto) 7.3 L (25-40) % [place] % (Auto) 7.7 (3-14) % Eos % (Auto) 0.0 L (2-4) % Baso % (Auto) 0.5 (0-2) % Neut # (Auto) 6100 (4309-6757) /uL Lymph # (Auto) 500 L (6994-5274) /uL [place] # (Auto) 600 (0-900) /uL Eos # (Auto) 0 (0-450) /uL Baso # (Auto) 0 (0-100) /uL RBC Morphology See below Anisocytosis 1+ H Macrocytosis 1+ H Schistocytes 1+ H PT 14.8 H (9.4-12.5) SECONDS INR 1.3 (0.9-1.3) APTT 30 (25.1-36.5) SECONDS Sodium 137 (137-145) mmol/L Potassium 3.9 (3.4-5.1) mmol/L Chloride 109 H (98-107) mmol/L Carbon Dioxide 20 L (22-32) mmol/L BUN 13 (9-20) mg/dL Creatinine 0.49 L (0.66-1.25) mg/dL Estimated GFR > 60 (>60) mL/min BUN/Creatinine Ratio 26.5 H (6-22) Glucose 161 H (70-99) mg/dL Lactate 2.8 H (0.7-2.1) mmol/L Calcium 8.9 (8.4-10.2) mg/dL Total Bilirubin 3.2 H (0.2-1.3) mg/dL AST 52 (17-59) IU/L ALT 34 (<50) IU/L Alkaline Phosphatase 48 (38-126) U/L Total Protein 7.0 (6.3-8.2) g/dL Albumin 3.8 (3.5-5.0) g/dL Globulin 3.2 (1.7-4.1) g/dL Albumin/Globulin Ratio 1.2 (1.0-2.8) Lipase 101 (23-300) U/L Urine RBC 5-10/hpf H (0-5/HPF) Urine WBC 0-1/hpf (0-5/HPF) Ur Squamous Epith Cells None seen (0-5/HPF) Urine Bacteria None seen (None) Vol Urine Centrifuged 10ml (spun) U Opiates 300ng/mL cut Positive H (Negative) Ur Oxycodone Screen Negative (Negative) Urine Methadone Screen Negative (Negative) Ur Barbiturates Screen Negative (Negative) U Tricyclic Antidepress Negative (Negative) Ur Phencyclidine Scrn Negative (Negative) Ur Amphetamines Screen Negative (Negative) U Methamphetamines Scrn Negative (Negative) Ur MDMA Scrn (Ecstasy) Negative (Negative) U Benzodiazepines Scrn Negative (Negative) Urine Cocaine Screen Negative (Negative) U Marijuana (THC) Screen Negative (Negative) Urine pH Normal (Normal) Urine Specific [place] Normal (Normal) Ethyl Alcohol < 10 ( - 10) mg/dL Ur Creatinine Normal (Normal) Urine Dip Bedside Urine Glucose Negative Bedside Urine Bilirubin - Negative Bedside Urine Ketone - Negative Urine Specific [place] 1.005 Bedside Urine Occult Blood +++ Bedside Urine pH 7.0 Bedside Urine Protein +/- 15 Bedside Urine Urobilinogen 1+ 2mg Bedside Urine Nitrite - Negative Bedside Urine Leukocytes - Negative Esterase Imaging Data CT chest/abdomen/pelvis: My Impression: Agree with Radiology interpretation Radiologist's Impression: [address] [address] [address] Scan Report Signed Patient: Eugene Esqueda MR#: [id number] : 1945 Acct:[id number] Age/Sex: 79 / M Date of Service: 09/12/24 Loc: ED Accession Number: [id number] Procedure: CT Trauma Chest Abdomen Pelvis Ordering Provider: Samantha Carroll PA-C PROCEDURE: CT TRAUMA CHEST ABDOMEN PELVIS INDICATIONS: 7ft 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 Maximum intensity projections and multiplanar reformats were obtained. MDCT axial abdomen and pelvis images were obtained with IV contrast in the portal venous phase. Multiplanar reformats were obtained. Optional delayed phase scanning may also be obtained Advanced techniques were used to lower patient radiation exposure. COMPARISON: [facility], , ABDOMEN LIMITED, 04/06/2024, 10:22. FINDINGS Image Quality: There is streak artifact seen through the level of the shoulders. Chest: Lungs and pleura: There is a mild left-sided hemothorax seen, associated atelectasis. No pneumothorax. No pulmonary contusions or lacerations. No solid pulmonary nodule requiring follow-up. Vascular: No dissection or pseudoaneurysm. No incidental central pulmonary embolism. No hemopericardium. Mediastinum: No mediastinum hematoma. No suspicious mass or lymph nodes. No actionable thyroid nodules. Advanced coronary artery calcification can be seen. A small hiatal hernia is incidentally noted. Chest wall: Several mildly displaced left-sided rib fractures are seen. Intact clavicles, scapula, and glenohumeral joint. Thoracic spine: No acute fracture or traumatic subluxation. Accentuated thoracic kyphosis is seen. ABDOMEN and PELVIS: Liver: No laceration or capsular hematoma. A TIPS catheter is seen. Low-density lesions can be seen within the liver, with the largest measuring 9 mm. Gallbladder: Unremarkable. Biliary system: Non-dilated. Pancreas: Unremarkable. Spleen: No laceration or capsular hematoma. Adrenals: No suspicious nodules. Kidneys: No contrast extravasation or hydronephrosis. No solid masses. Vessels and lymph nodes: No pathology lymph nodes by size criteria. No dissection or aneurysm. No retroperitoneal hematoma. Apparent coils can be seen within the left quadrant. Atherosclerotic calcification is noted. Bowel and peritoneum: No suspicious region of mesenteric hemorrhage or hemoperitoneum. No bowel obstruction. Colonic diverticulosis is seen, without findings of active diverticulitis. Pelvis: Unremarkable bladder. Prostatectomy with lymph node dissection clips can be seen. Bilateral fat containing inguinal hernias are seen. Pelvic ring and femurs: No pelvic ring disruption. No hip fractures. Lumbar spine: No acute fracture or traumatic subluxation. Mild levoconvex scoliotic curvature is noted. Generalized lumbar spine degenerative change can be seen. A unilateral L5 pars defect is seen on the right. Abdominal wall: No drainable fluid collection or hematoma. IMPRESSION: Several mildly displaced left-sided rib fractures are seen, with associated overlying atelectasis. Small low-density lesions can be seen within the liver, likely representing cysts, although too small to definitively characterize. Additional findings: Advanced coronary artery calcification Small hiatal hernia TIPS catheter Left upper quadrant apparent coils Levoconvex lumbar scoliotic curvature Generalized lumbar spine degenerative change Diverticulosis, without active diverticulitis Unilateral right L5 pars defect Prostatectomy with lymph node dissection clips Bilateral fat containing inguinal hernias Dictated by: Polo Garcia M.D. on 09/12/2024 at 15:47 Approved by: Polo Garcia M.D. on 09/12/2024 at 15:54 ECG Data Attestation: I personally reviewed and interpreted this ECG as follows: Interpretation: Normal sinus rhythm with first-degree AV block heart rate 69. Left ventricular hypertrophy QTC 458 milliseconds MDM Narrative Medical decision making narrative: This is a 79-year-old male with history of tips procedure, hypertension, cirrhosis, alcoholism in remission since 2018 presenting today with concern for trauma to the left side sustained 2 days ago when he fell from about 6 ft height off of a ladder onto grass. Patient was flown here from [facility] via an air ambulance and on arrival was hypertensive and mildly tachypneic with pain at 4/10 after fentanyl 75 mcg administered by flight crew. His lung exam was concerning for fluid collection in the base on the left and his trauma exam concerning for left-sided significant tenderness possible rib fractures. Otherwise fairly unremarkable exam--no other trauma noted. Labs were fairly unremarkable, bili was elevated but was also noted to be elevated last month. INR was 1.3. PT slightly elevated at 14.8. CT chest abdomen pelvis was obtained which does show a mild hemothorax as well as multiple slightly displaced rib fractures. Given patient's pain, difficulty managing his symptoms at home and multiple rib fractures as well as his age discussed admission with the general surgeon Dr. Arango who agrees to take the patient under observation with the hospitalist consulting given patient's medical history. Attending physician Dr. Raphael was also consulted regarding his care. In the ER patient received 500 mL of NS as well as 1 mg Ativan p.o. to help with muscle spasming type pain and additional fentanyl. He was admitted to surgery with hospitalist consulting. <Analilia Raphael, DO - Last Filed: 09/13/24 07:39> Lab Data Labs: Lab Results 09/12/24 09/12/24 Range/Units 15:45 17:33 WBC 7.2 (4.5-11.0) X10^3/uL RBC 3.68 L (4.5-5.9) X10^6/uL Hgb 14.7 (13.5-17.5) g/dL Hct 40.6 L (41-53) % MCV 110.4 H (80-100) fL MCH 40.1 H (26-34) PG MCHC 36.3 H (30-36) % RDW 16.9 H (11.6-14.8) % Plt Count 129 L (150-400) X10^3/uL Neut % (Auto) 84.5 H (50-75) % Lymph % (Auto) 7.3 L (25-40) % [place] % (Auto) 7.7 (3-14) % Eos % (Auto) 0.0 L (2-4) % Baso % (Auto) 0.5 (0-2) % Neut # (Auto) 6100 (6783-7691) /uL Lymph # (Auto) 500 L (3595-9682) /uL [place] # (Auto) 600 (0-900) /uL Eos # (Auto) 0 (0-450) /uL Baso # (Auto) 0 (0-100) /uL RBC Morphology See below Anisocytosis 1+ H Macrocytosis 1+ H Schistocytes 1+ H PT 14.8 H (9.4-12.5) SECONDS INR 1.3 (0.9-1.3) APTT 30 (25.1-36.5) SECONDS Sodium 137 (137-145) mmol/L Potassium 3.9 (3.4-5.1) mmol/L Chloride 109 H (98-107) mmol/L Carbon Dioxide 20 L (22-32) mmol/L BUN 13 (9-20) mg/dL Creatinine 0.49 L (0.66-1.25) mg/dL Estimated GFR > 60 (>60) mL/min BUN/Creatinine Ratio 26.5 H (6-22) Glucose 161 H (70-99) mg/dL Lactate 2.8 H (0.7-2.1) mmol/L Calcium 8.9 (8.4-10.2) mg/dL Total Bilirubin 3.2 H (0.2-1.3) mg/dL AST 52 (17-59) IU/L ALT 34 (<50) IU/L Alkaline Phosphatase 48 (38-126) U/L Total Protein 7.0 (6.3-8.2) g/dL Albumin 3.8 (3.5-5.0) g/dL Globulin 3.2 (1.7-4.1) g/dL Albumin/Globulin Ratio 1.2 (1.0-2.8) Lipase 101 (23-300) U/L Urine RBC 5-10/hpf H (0-5/HPF) Urine WBC 0-1/hpf (0-5/HPF) Ur Squamous Epith Cells None seen (0-5/HPF) Urine Bacteria None seen (None) Vol Urine Centrifuged 10ml (spun) U Opiates 300ng/mL cut Positive H (Negative) Ur Oxycodone Screen Negative (Negative) Urine Methadone Screen Negative (Negative) Ur Barbiturates Screen Negative (Negative) U Tricyclic Antidepress Negative (Negative) Ur Phencyclidine Scrn Negative (Negative) Ur Amphetamines Screen Negative (Negative) U Methamphetamines Scrn Negative (Negative) Ur MDMA Scrn (Ecstasy) Negative (Negative) U Benzodiazepines Scrn Negative (Negative) Urine Cocaine Screen Negative (Negative) U Marijuana (THC) Screen Negative (Negative) Urine pH Normal (Normal) Urine Specific [place] Normal (Normal) Ethyl Alcohol < 10 ( - 10) mg/dL Ur Creatinine Normal (Normal) Urine Dip Bedside Urine Glucose Negative Bedside Urine Bilirubin - Negative Bedside Urine Ketone - Negative Urine Specific [place] 1.005 Bedside Urine Occult Blood +++ Bedside Urine pH 7.0 Bedside Urine Protein +/- 15 Bedside Urine Urobilinogen 1+ 2mg Bedside Urine Nitrite - Negative Bedside Urine Leukocytes - Negative Esterase Discharge Plan Departure Patient Disposition: Admitted as Observation Clinical Impression: Hemothorax on left Multiple fractures of ribs of left side Qualifiers: Encounter type: initial encounter Fracture type: closed Qualified Code(s): S22.42XA - Multiple fractures of ribs, left side, initial encounter for closed fracture Fall on and from ladder causing accidental injury Qualifiers: Encounter type: initial encounter Qualified Code(s): W11.XXXA - Fall on and from ladder, initial encounter Admit Date/Time: 09/12/24 17:37 Admit Provider: Harrison Arango ED Sign-out <Analilia Raphael DO - Last Filed: 09/13/24 07:39> Cosign ED Attending Cosignature Attestation: I was immediately available in the department for consultation. Case was discussed at length, patient's imaging patient was seen briefly by myself. Case discussed with Dr. Arango general surgery who will admit with a medicine consult as patient was quite a few medical issues.
--- NOTE | 2024-09-12 16:01 | EKG_ITS ---
[facility] [address] [place] [address] Test Date: 2024-09-12 Pat Name: Eugene Esqueda Department: [facility] Room: Gender: Male Radioisotope Technologist: DENNYS : 1945 Requested By: Order Number: [id number] Reading MD: José Miguel Michaels MD Measurements Intervals [place] Rate: 69 P: 31 IL: 406 QRS: -38 QRSD: 122 T: 79 QT: 428 QTc: 458 Interpretive Statements Sinus rhythm with 1st degree AV block Left axis deviation Left ventricular hypertrophy with QRS widening ( R in aVL , Dimas product ) Electronically Signed On 09-13-2024 8:12:55 PDT by José Miguel Michaels MD
[2024-09-12 16:04] LABS: INR 1.3 (0.9-1.3); Prothrombin Time 14.8 SECONDS (9.4-12.5)
[2024-09-12 16:07] LABS: PTT Partial Thromboplastin Tim 30 SECONDS (25.1-36.5)
[2024-09-12 16:14] LABS: Alanine Aminotransferase 34 IU/L (<50); Albumin 3.8 g/dL (3.5-5.0); Albumin Globulin Ratio 1.2 (1.0-2.8); Alkaline Phosphatase 48 U/L (38-126); Aspartate Aminotransferase 52 IU/L (17-59); BUN Creatinine Ratio 26.5 (6-22); Bilirubin Total 3.2 mg/dL (0.2-1.3); Blood Urea Nitrogen 13 mg/dL (9-20); Calcium 8.9 mg/dL (8.4-10.2); Carbon Dioxide 20 mmol/L (22-32); Chloride 109 mmol/L (98-107); Estimated Glomerular Filt Rate > 60 mL/min (>60); Ethanol (ETOH) < 10 mg/dL; Globulin 3.2 g/dL (1.7-4.1); Glucose 161 mg/dL (70-99); HEMOLYSIS < 15 (0-50); Lactate (Lactic Acid) 2.8 mmol/L (0.7-2.1); Lipase 101 U/L (23-300); Potassium 3.9 mmol/L (3.4-5.1); Sodium 137 mmol/L (137-145)
[2024-09-12] MEDS: LORazepam 0.5 MG TABLET 1 MG PO (16:20)
[2024-09-12 16:28] LABS: Basophils Absolute Auto 0 /uL (0-100); Basophils Percent Auto 0.5 % (0-2); Eosinophils Absolute Auto 0 /uL (0-450); Hematocrit 40.6 % (41-53); Hemoglobin 14.7 g/dL (13.5-17.5); Lymphocytes Absolute Auto 500 /uL (1100-4500); Lymphocytes Percent Auto 7.3 % (25-40); Mean Corpuscular Hemoglobin 40.1 PG (26-34); Mean Corpuscular Volume 110.4 fL (80-100); Monocytes Absolute Auto 600 /uL (0-900); Monocytes Percent Auto 7.7 % (3-14); Neutrophils Absolute Auto 6100 /uL (1500-7000); Neutrophils Percent Auto 84.5 % (50-75); Platelet Count 129 X10^3/uL (150-400); Red Blood Cell Count 3.68 X10^6/uL (4.5-5.9); Red Cell Distribution Width 16.9 % (11.6-14.8); White Blood Cell Count 7.2 X10^3/uL (4.5-11.0)
[2024-09-12 16:43] LABS: Mean Corpuscular HGB Conc 36.3 % (30-36)
[2024-09-12 16:48] LABS: Add Manual Diff / Slide Review SLIDE REVIEW
[2024-09-12 16:53] LABS: Anisocytosis 1+; Macrocytosis 1+; Schistocytes 1+
[2024-09-12] MEDS: SODIUM CHLORIDE 0.9% 500 ML IV (17:08)
--- NOTE | 2024-09-12 17:09 | PC.NURSE ---
Pt laying flat and states that it is the best position of comfort. A&Ox4. States that if he is laying flat his ribs are not spasming. PA notified.
[2024-09-12 17:35] LABS: Reflexed Lactate in 2 Hours Y
[2024-09-12 17:51] LABS: Bacteria Urine None Seen; RBC Urine 5-10/HPF (0-5/HPF); Squamous Epithelial Cell Urine None Seen (0-5/HPF); Ur Creatinine Normal (Normal); Ur Specific Gravity Normal (Normal); Urine Amphetamines Negative (Negative); Urine Barbiturates Negative (Negative); Urine Benzodiazepines Negative (Negative); Urine Cocaine Negative (Negative); Urine MDMA Negative (Negative); Urine Methadone Negative (Negative); Urine Opiates Positive (Negative); Urine Oxycodone Negative (Negative); Urine Phencyclidine Negative (Negative); Urine THC Negative (Negative); Urine Tricyclic Antidepressant Negative (Negative); Urine Volume 10mL (spun); Urine pH Normal (Normal); WBC Urine 0-1/HPF (0-5/HPF)
--- NOTE | 2024-09-12 17:58 | PC.NURSE ---
pt c/o 02/05 left rib spasm. 25mcg IV fent given as per jun. PA notified.
[2024-09-12 18:18] LABS: Lactate 2HR (Lactic Acid Rflx) 1.4 mmol/L (0.7-2.1)
--- NOTE | 2024-09-12 18:34 | P.CONS_ITS ---
History of Present Illness Consult details Date Patient Seen: 09/12/24 Chief complaint: Fall hemothorax rib fracture Reason for consult: Co-management of medical conditions Requesting provider: Harrison Arango Narrative: Chief complaint: 6 ft fall off of a ladder on left side with rib fractures local atelectasis and hemothorax History of present illness: 79-year-old gentleman who fell from a ladder while fixing his roof landed on his left side with some left-sided pain in his chest particularly when he took in a deep breath. Patient endured the pain for a couple of days but as time progressed his chest became stiffer it became more difficult for him to take in a deep breath and he became concerned about his symptoms. Patient was brought to the emergency room at [facility] for evaluation. Findings in the emergency department significant for a CT scan shows several mildly displaced left-sided rib fractures with associated overlying atelectasis and small mid left-sided hemothorax The remainder of the a CT scan of the abdomen and pelvis was nonacute showing chronic organ changes from cirrhosis Patient was placed in observation by surgery Dr. 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 portal hypertension status post tips procedure does not currently drink Patient has mild coagulopathy PT INR 1.4 and platelets 136 presumably secondary to cirrhosis Patient takes azathioprine for myasthenia gravis being followed at the [facility] Review of systems: No weight loss or weight gain fever or chills No sinus or ear symptoms no vertigo No difficulty swallowing No chest pain other than pleurodynia or palpitations No cough or shortness a breath or wheezing No abdominal pain nausea vomiting diarrhea No paresthesia or paresis Physical examination: Splinted breathing obviously enduring some discomfort and pain HEENT unremarkable Neck no JVD Heart sounds distant no murmurs Lungs was splinted respirations and diminished breath sounds Abdomen Nondistended bowel sounds present nontender Extremities no edema Neuro alert and oriented nonfocal Assessment and plan: Blunt chest trauma with small left hemothorax focal atelectasis and rib fractures: * After 48 hours patient is probably stable and pain control is necessary however to prevent further splinting and potential pneumonia * Adequate analgesia to prevent further splinting * Incentive spirometry if tolerated but will defer to surgery management of this * Expect no specific complications from his chronic medical problems for this episode Laeharleycatalina's cirrhosis with coagulopathy and consumptive thrombocytopenia * Mild coagulopathy and mild thrombocytopenia do not expect this to be problematic in this patient * No signs of abdominal organ injury * No restriction for non NSAID analgesia * If NSAIDs are used there is some increased potential of gastric erosions and bleeding Myasthenia gravis on azathioprine for immunosuppression * Continue azathioprine * No signs of exacerbation DVT prophylaxis with SCDs only Code status: * Full Code Blue Thank you very much for the opportunity to consult on this very pleasant and interesting patient Meds Home Medications and Allergies Home Medications Medication Instructions Recorded Confirmed Type omeprazole 20 mg capsule,delayed 20 mg PO DAILY #90 caps 01/29/22 04/10/24 Rx release escitalopram oxalate 10 mg tablet See Rx Instructions .Route 01/31/23 04/10/24 Rx .COMPLEX #90 tabs ferrous sulfate 325 mg (65 mg 325 mg PO DAILY 04/01/24 04/10/24 History iron) tablet (Feosol) azathioprine 50 mg tablet 200 mg PO DAILY 04/10/24 04/10/24 History doxycycline hyclate 100 mg capsule 100 mg PO BID #20 caps 04/10/24 04/10/24 Rx amlodipine 10 mg tablet 10 mg PO DAILY for blood pressure 07/20/24 Rx #90 tabs Allergies Allergy/AdvReac Type Severity Reaction Status Date / Time No Known Drug Allergies Allergy Verified 09/12/24 15:44 Exam Vital Signs (past 8 hours): - 09/12/24 15:43 09/12/24 15:44 09/12/24 16:00 Temperature 97.8 F Pulse Rate 80 70 68 Respiratory Rate 25 H 16 25 H Blood Pressure 176/81 H Pulse Oximetry 95 98 95 Oxygen Delivery Method Room Air 09/12/24 16:01 09/12/24 16:01 09/12/24 16:30 Temperature Pulse Rate 67 76 Respiratory Rate 24 18 Blood Pressure 160/75 H Pulse Oximetry 94 94 Oxygen Delivery Method 09/12/24 16:32 09/12/24 16:32 09/12/24 17:00 Temperature Pulse Rate 75 75 Respiratory Rate 21 21 Blood Pressure 161/77 H Pulse Oximetry 94 95 Oxygen Delivery Method 09/12/24 17:00 09/12/24 17:30 09/12/24 17:30 Temperature Pulse Rate 92 H Respiratory Rate 32 H Blood Pressure 147/71 H 156/95 H Pulse Oximetry Oxygen Delivery Method 09/12/24 18:00 09/12/24 18:00 Temperature Pulse Rate 79 Respiratory Rate 20 Blood Pressure 139/67 Pulse Oximetry 95 Oxygen Delivery Method Oxygen Delivery Method Room Air Objective Labs 09/12/24 15:45 09/12/24 15:45 Labs: Laboratory Results - last 24 hr 09/12/24 09/12/24 09/12/24 15:45 17:33 17:48 WBC 7.2 RBC 3.68 L Hgb 14.7 Hct 40.6 L MCV 110.4 H MCH 40.1 H MCHC 36.3 H RDW 16.9 H Plt Count 129 L Neut % (Auto) 84.5 H Lymph % (Auto) 7.3 L [place] % (Auto) 7.7 Eos % (Auto) 0.0 L Baso % (Auto) 0.5 Neut # (Auto) 6100 Lymph # (Auto) 500 L [place] # (Auto) 600 Eos # (Auto) 0 Baso # (Auto) 0 RBC Morphology See below Anisocytosis 1+ H Macrocytosis 1+ H Schistocytes 1+ H PT 14.8 H INR 1.3 APTT 30 Sodium 137 Potassium 3.9 Chloride 109 H Carbon Dioxide 20 L BUN 13 Creatinine 0.49 L Estimated GFR > 60 BUN/Creatinine Ratio 26.5 H Glucose 161 H Lactate 2.8 H 1.4 Calcium 8.9 Total Bilirubin 3.2 H AST 52 ALT 34 Alkaline Phosphatase 48 Total Protein 7.0 Albumin 3.8 Globulin 3.2 Albumin/Globulin Ratio 1.2 Lipase 101 Urine RBC 5-10/hpf H Urine WBC 0-1/hpf Ur Squamous Epith Cells None seen Urine Bacteria None seen Vol Urine Centrifuged 10ml (spun) U Opiates 300ng/mL cut Positive H Ur Oxycodone Screen Negative Urine Methadone Screen Negative Ur Barbiturates Screen Negative U Tricyclic Antidepress Negative Ur Phencyclidine Scrn Negative Ur Amphetamines Screen Negative U Methamphetamines Scrn Negative Ur MDMA Scrn (Ecstasy) Negative U Benzodiazepines Scrn Negative Urine Cocaine Screen Negative U Marijuana (THC) Screen Negative Urine pH Normal Urine Specific [place] Normal Ethyl Alcohol < 10 Ur Creatinine Normal PFSH Medical History Cellulitis of right knee Elevated blood pressure reading Encounter for screening colonoscopy History of colon polyps Left elbow pain Pain and swelling of right knee Routine general medical examination at a [facility] care facility Surgical History Anesthesia History of nasal surgery Status post discectomy (07/13/14) Status post laminectomy (07/13/14) Status post radical cystoprostatectomy Family History Father Cancer History of heart disease Tobacco & Substance Use Smoking Status: Former smoker Assessment & Plan Time-Based Coding :: 55 minutes spent with patient and on the chart (including review of chart, obtaining history, exam, reviewing outside data, placing orders, documenting exam and treatment plan, and counseling patient) .
[2024-09-12] MEDS: HYDROMORPHONE 0.5 MG INJ IV (21:05)
[2024-09-12] MEDS: OXYCODONE IR 5 MG TABLET PO (23:58)
[2024-09-13 05:10] VITALS: BP 131/73; PULSE 66; RESP 19; TEMP 36.6; O2SAT 97
[2024-09-13] MEDS: PANTOPRAZOLE DR 20 MG TABLET PO (05:10)
[2024-09-13] MEDS: OXYCODONE IR 5 MG TABLET PO ×5 (05:12→22:17)
[2024-09-13 05:16] VITALS: BMI 32.5
[2024-09-13 05:16] LABS: Add Manual Diff / Slide Review NO; Basophils Absolute Auto 0 /uL (0-100); Basophils Percent Auto 0.7 % (0-2); Eosinophils Absolute Auto 0 /uL (0-450); Eosinophils Percent Auto 0.2 % (2-4); Hematocrit 39.1 % (41-53); Hemoglobin 14.4 g/dL (13.5-17.5); Lymphocytes Absolute Auto 700 /uL (1100-4500); Lymphocytes Percent Auto 12.2 % (25-40); Mean Corpuscular HGB Conc 36.8 % (30-36); Mean Corpuscular Hemoglobin 40.3 PG (26-34); Mean Corpuscular Volume 109.5 fL (80-100); Monocytes Absolute Auto 500 /uL (0-900); Neutrophils Absolute Auto 4500 /uL (1500-7000); Neutrophils Percent Auto 77.9 % (50-75); Platelet Count 128 X10^3/uL (150-400); Red Blood Cell Count 3.57 X10^6/uL (4.5-5.9); White Blood Cell Count 5.8 X10^3/uL (4.5-11.0)
[2024-09-13 05:57] LABS: Alanine Aminotransferase 29 IU/L (<50); Albumin 3.5 g/dL (3.5-5.0); Albumin Globulin Ratio 1.1 (1.0-2.8); Alkaline Phosphatase 51 U/L (38-126); Aspartate Aminotransferase 43 IU/L (17-59); BUN Creatinine Ratio 23.2 (6-22); Bilirubin Total 2.4 mg/dL (0.2-1.3); Blood Urea Nitrogen 13 mg/dL (9-20); Carbon Dioxide 28 mmol/L (22-32); Chloride 107 mmol/L (98-107); Estimated Glomerular Filt Rate > 60 mL/min (>60); Globulin 3.3 g/dL (1.7-4.1); Glucose 115 mg/dL (70-99); HEMOLYSIS < 15 (0-50); Potassium 3.9 mmol/L (3.4-5.1); Sodium 139 mmol/L (137-145); Total Protein 6.8 g/dL (6.3-8.2)
--- NOTE | 2024-09-13 07:13 | PM.PN.1 ---
Subjective Subjective Date Patient Seen: 09/13/24 Interval history: Chief complaint: 6 ft fall off of a ladder on left side with rib fractures local atelectasis and hemothorax History of present illness: 79-year-old gentleman who fell from a ladder while fixing his roof landed on his left side with some left-sided pain in his chest particularly when he took in a deep breath. Patient endured the pain for a couple of days but as time progressed his chest became stiffer it became more difficult for him to take in a deep breath and he became concerned about his symptoms. Patient was brought to the emergency room at [facility] for evaluation. Findings in the emergency department significant for a CT scan shows several mildly displaced left-sided rib fractures with associated overlying atelectasis and small mid left-sided hemothorax The remainder of the a CT scan of the abdomen and pelvis was nonacute showing chronic organ changes from cirrhosis Patient was placed in observation by surgery Dr. 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 does not currently drink Patient has mild coagulopathy PT INR 1.4 and platelets 136 presumably secondary to cirrhosis Patient takes azathioprine for myasthenia gravis being followed at the [facility] course: 09/13: Overnight no fevers or night sweats awakening in the night with pain but it is manageable Total really moving back down to baseline of 2.4 from 3.2 Review of systems: No weight loss or weight gain fever or chills No sinus or ear symptoms no vertigo No difficulty swallowing No chest pain other than pleurodynia or palpitations No cough or shortness a breath or wheezing No abdominal pain nausea vomiting diarrhea No paresthesia or paresis Physical examination: Splinted breathing obviously enduring some discomfort and pain HEENT unremarkable Neck no JVD Heart sounds distant no murmurs Lungs are less splinted respirations and diminished breath sounds Abdomen area small very faint 10 cm ecchymosis on the right of the umbilicus no periumbilical ecchymoses Nondistended bowel sounds present nontender Extremities no edema Neuro alert and oriented nonfocal Assessment and plan: Blunt chest trauma with small left hemothorax focal atelectasis and rib fractures: After 48 hours patient is probably stable and pain control is necessary however to prevent further splinting and potential pneumonia Adequate analgesia to prevent further splinting Incentive spirometry if tolerated but will defer to surgery management of this Expect no specific complications from his chronic medical problems for this episode Follow-up CT of the abdomen plan to today per surgery orders 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 Mild coagulopathy and mild thrombocytopenia do not expect this to be problematic in this patient No signs of abdominal organ injury No restriction for non NSAID analgesia If NSAIDs are used there is some increased potential of gastric erosions and bleeding Myasthenia gravis on azathioprine for immunosuppression Continue azathioprine No signs of exacerbation DVT prophylaxis with SCDs only Code status: Full Code Blue Thank you very much for the opportunity to consult on this very pleasant and interesting patient Time-Based Coding :: 35 minutes spent with patient and on the chart (including review of chart, obtaining history, exam, reviewing outside data, placing orders, documenting exam and treatment plan, and counseling patient) . Exam Vital Signs (past 8 hours): - 09/13/24 05:10 Temperature 97.8 F Pulse Rate 66 Respiratory Rate 19 Blood Pressure 131/73 Pulse Oximetry 97 Oxygen Flow Rate 0 Oxygen Delivery Method Room Air Oxygen Flow Rate 0 Objective Labs 09/13/24 05:04 09/13/24 05:04 Labs: Laboratory Results - last 24 hr 09/12/24 09/12/24 09/12/24 15:45 17:33 17:48 WBC 7.2 RBC 3.68 L Hgb 14.7 Hct 40.6 L MCV 110.4 H MCH 40.1 H MCHC 36.3 H RDW 16.9 H Plt Count 129 L Neut % (Auto) 84.5 H Lymph % (Auto) 7.3 L [place] % (Auto) 7.7 Eos % (Auto) 0.0 L Baso % (Auto) 0.5 Neut # (Auto) 6100 Lymph # (Auto) 500 L [place] # (Auto) 600 Eos # (Auto) 0 Baso # (Auto) 0 RBC Morphology See below Anisocytosis 1+ H Macrocytosis 1+ H Schistocytes 1+ H PT 14.8 H INR 1.3 APTT 30 Sodium 137 Potassium 3.9 Chloride 109 H Carbon Dioxide 20 L BUN 13 Creatinine 0.49 L Estimated GFR > 60 BUN/Creatinine Ratio 26.5 H Glucose 161 H Lactate 2.8 H 1.4 Calcium 8.9 Total Bilirubin 3.2 H AST 52 ALT 34 Alkaline Phosphatase 48 Total Protein 7.0 Albumin 3.8 Globulin 3.2 Albumin/Globulin Ratio 1.2 Lipase 101 Urine RBC 5-10/hpf H Urine WBC 0-1/hpf Ur Squamous Epith Cells None seen Urine Bacteria None seen Vol Urine Centrifuged 10ml (spun) U Opiates 300ng/mL cut Positive H Ur Oxycodone Screen Negative Urine Methadone Screen Negative Ur Barbiturates Screen Negative U Tricyclic Antidepress Negative Ur Phencyclidine Scrn Negative Ur Amphetamines Screen Negative U Methamphetamines Scrn Negative Ur MDMA Scrn (Ecstasy) Negative U Benzodiazepines Scrn Negative Urine Cocaine Screen Negative U Marijuana (THC) Screen Negative Urine pH Normal Urine Specific [place] Normal Ethyl Alcohol < 10 Ur Creatinine Normal Blood Type A Positive Antibody Screen Negative 09/13/24 05:04 WBC 5.8 RBC 3.57 L Hgb 14.4 Hct 39.1 L MCV 109.5 H MCH 40.3 H MCHC 36.8 H RDW 17.0 H Plt Count 128 L Neut % (Auto) 77.9 H Lymph % (Auto) 12.2 L [place] % (Auto) 9.0 Eos % (Auto) 0.2 L Baso % (Auto) 0.7 Neut # (Auto) 4500 Lymph # (Auto) 700 L [place] # (Auto) 500 Eos # (Auto) 0 Baso # (Auto) 0 RBC Morphology Anisocytosis Macrocytosis Schistocytes PT INR APTT Sodium 139 Potassium 3.9 Chloride 107 Carbon Dioxide 28 BUN 13 Creatinine 0.56 L Estimated GFR > 60 BUN/Creatinine Ratio 23.2 H Glucose 115 H Lactate Calcium 9.0 Total Bilirubin 2.4 H AST 43 ALT 29 Alkaline Phosphatase 51 Total Protein 6.8 Albumin 3.5 Globulin 3.3 Albumin/Globulin Ratio 1.1 Lipase Urine RBC Urine WBC Ur Squamous Epith Cells Urine Bacteria Vol Urine Centrifuged U Opiates 300ng/mL cut Ur Oxycodone Screen Urine Methadone Screen Ur Barbiturates Screen U Tricyclic Antidepress Ur Phencyclidine Scrn Ur Amphetamines Screen U Methamphetamines Scrn Ur MDMA Scrn (Ecstasy) U Benzodiazepines Scrn Urine Cocaine Screen U Marijuana (THC) Screen Urine pH Urine Specific [place] Ethyl Alcohol Ur Creatinine Blood Type Antibody Screen [facility] Medical History Cellulitis of right knee Elevated blood pressure reading Encounter for screening colonoscopy History of colon polyps Left elbow pain Pain and swelling of right knee Routine general medical examination at a health care facility Surgical History Anesthesia History of nasal surgery Status post discectomy (07/13/14) Status post laminectomy (07/13/14) Status post radical cystoprostatectomy Family History Father Cancer History of heart disease Social History Smoking Status: Never smoker alcohol intake: former Assessment & Plan Time-Based Coding :: [TOTAL MINUTES] spent with patient and on the chart (including review of chart, obtaining history, exam, reviewing outside data, placing orders, documenting exam and treatment plan, and counseling patient) on [DATE].
[2024-09-13 07:38] VITALS: BP 157/76; PULSE 65; RESP 16; TEMP 36.7; O2SAT 97
[2024-09-13] MEDS: IBUPROFEN 600 MG TABLET PO ×2 (07:45→18:42)
--- NOTE | 2024-09-13 08:21 | CM.DANOTE ---
Initial DCP Assessment Note Pt is a 79 yo male, resident of [facility], fell off a ladder imaging done in the ER identified several mildly displaced left-sided rib fractures with associated overlying atelectasis and small mid left-sided hemothorax. Patient was admitted OBS by surgery Dr. Arango for pain control and monitoring. Hospitalist consulted. PCP: Dr. Hamilton ( [facility]) Payer: MCR/[employer] Reviewed chart, pt discussed with PT. Therapy has cleared pt for return home and pt has planned for home, DC order from Surgery anticipated today. Order for rolling walker placed per PT recommendation. Patient will transport home w/friend. No barriers identified at this time to patient's safe discharge home w/ close outpatient f/u recommended. CM team will plan to follow clinical course closely in case any DC needs or concerns arise. SIRENA Nunez Discharge Planning/Care Management CM Discharge Assessment Start: 09/12/24 17:49 Freq: Status: Active Protocol: Document 09/13/24 08:19 KRISHNA (Rec: 09/13/24 08:21 [email or web address] [id number]) Discharge Planning Assessment Assigned Poultry Dresser SIRENA Payan DPOA/Assigned Designee Name Carmela Torres [phone] Contact Information Lalo Esqueda (son) [phone] Advance Directives? No History Provided By Patient,Medical Record Has Patient been admitted in last 30 No days? Prior Living Arrangements House Household Members none Type of transporation used prior to Drives own vehicle admit Independent with ADL's Yes Is patient alert and oriented? Yes Patient/Family Preference OP PT Therapy Barriers to Discharge No Discharge Plan Home Transportation Arrangement Friend Referrals Initiated None needed
--- NOTE | 2024-09-13 08:40 | PT.IIE ---
Current Diagnoses Pleurodynia (09/12/24) Fall on and from ladder, initial encounter (09/12/24) Surgical History (Last Reviewed 03/19/22 @ 10:07 by Dario Brooks DO) Anesthesia History of nasal surgery Status post discectomy (07/13/14) Status post laminectomy (07/13/14) Status post radical cystoprostatectomy Medical History (Last Reviewed 03/19/22 @ 10:07 by Dario Brooks DO) Cellulitis of right knee Elevated blood pressure reading Encounter for screening colonoscopy History of colon polyps Left elbow pain Pain and swelling of right knee Routine general medical examination at a [facility] Physical Therapy Inpatient Evaluation/Re-Eval M1 PT/OT-IP Prior Functional Status Start: 09/13/24 07:30 Freq: NEEDED Status: Active Protocol: Document 09/13/24 07:43 MB (Rec: 09/13/24 08:39 MB Desktop) Medical Review Prior Functional Status Medical History Reviewed Yes Diet/Fluid Consistency Regular Communication WNLs Mobility and Gait I Activities of Daily Living and IADL's I Social History Household Members none Living Arrangements House Number of Floors (Floors) One Floor Number of Stairs To Enter/Railing? 4 steps and two rails to enter , can only reach one rail at a time Home Environment Standard Height Toilet,Walk in Shower Home Equipment Shower Seat without Backrest, Hand Held Shower,Grab Bars In Shower Employment Status Retired M2 PT-IP Current Condition Start: 09/13/24 07:30 Freq: NEEDED Status: Active Protocol: Document 09/13/24 07:43 MB (Rec: 09/13/24 08:39 MB Desktop) Physical Therapy Current Condition Current Condition Evaluation Date 09/13/24 Treatment Diagnosis Fall off lader, left rib fractures and hemothorax M3 PT-IP Subjective Start: 09/13/24 07:30 Freq: NEEDED Status: Active Protocol: Document 09/13/24 07:43 MB (Rec: 09/13/24 08:39 MB Desktop) Subjective Physical Therapy Visit Type Type Initial Evaluation Visit Start Time 07:43 Visit Stop Time 08:28 Number of ANESTHESIOLOGY PHYSICIAN ASSISTANT Visits 0 Physical Therapy Visit Comments Patient Comments Pt reports high pain when moving, is reluctant but participatory with PT Therapy Pain Assessment Pain When Pain Assessed During Mobility Pain Present Pain Present Pain Reported Location left ribs Scale Used 9.5 Description Acute,With Movement Pain Behaviors Facial Grimacing,Guarding, Holding Area,Moaning,Wincing Pain Management Techniques Distraction,Modification of Treatment,Re-positioning, Timing of Activity with Medications M4 PT-IP Mobility and Gait Start: 09/13/24 07:30 Freq: NEEDED Status: Active Protocol: Document 09/13/24 07:43 MB (Rec: 09/13/24 08:39 MB Desktop) PT-Bed Mobility Assessment Rolling Type of Rolling Roll to Right Level of Assist Contact Guard Assistance Supine to Sit Supine to Sit Contact Guard Assistance,Head of Bed Elevated,Bedrails Scooting Scooting to Edge of Bed Contact Guard Assistance PT-Transfer Assessment Sit to and From Stand Sit to and from Stand Contact Guard Assistance Equipment Transfer Assistive Device Gait Belt,Front Wheeled Walker Transfers Transfer Destination Chair Transfer Technique Ambulation Transfer Ability Level of Assist Contact Guard Assistance Comments Mobility Comments Very slow mobility, 10' to perform bed mobility with increased VCs for rolling to the right after scooting to the left and pt is unable to scoot shoulders over to the left, heavy use of bed rail to the right, he is unable to get to sitting after rolling on right side until PT raises HOB all the way: he will likely have to sleep in his recliner at home Gait Assessment Gait Gait Assistance Required: Standby Assistance,Contact Guard Assist Distance (Feet) 100 Assistive Devices Assistive Device Gait Belt,Front Wheeled Walker Gait Deviations General Gait Pattern Antalgic,Decreased Stride Length,Decreased Feet Clearance,Flexed Trunk Factors Limiting Gait Function Factors Limiting Gait Function Decreased Activity Tolerance, Pain Stair Climbing Assessment Evaluation Level of Assist On Stairs Contact Guard Assistance Devices Stair Climbing Assistive Devices Left Railing Technique/Endurance Stair Climbing Direction Ascend and Descend Stair Climbing Technique Step to Step Number of Steps Climbed 3 Query Text: Stair Climbing Set # Repetitions (reps) 1 Comments Stair Climbing Comments Both hands on left rail ascend and step to step up, leading with right foot and same rail and leading with left foot to descend PT-Balance Assessment Sitting Balance and Reactions Static Sitting Balance Ability Fair Dynamic Sitting Balance Ability Fair Standing Balance and Reactions Static Standing Balance Ability Good Dynamic Standing Balance Ability Good Device Used RW M5 PT-IP Objective Assessments Start: 09/13/24 07:30 Freq: NEEDED Status: Active Protocol: Document 09/13/24 07:43 MB (Rec: 09/13/24 08:39 MB Desktop) Orientation Orientation/Cognition Level of Alertness Alert Orientation Name,Age,Birthday,Month,Date, Year,Day of Week,Place, Situation Language Function Ability No Deficits Noted Safety Awareness Decreased Safety Awareness Memory Description No Deficits Noted Gross Range of Motion Upper Extremity ROM Impairments Deferred d/t pain and pt limits all UE motion Lower Extremity ROM Impairments Deferred d/t pain and no deficits noted Strength Lower Extremity Strength Assessment Within Functional Limits Coordination Assessment Assessment Coordination Comments NT Sensation Assessment Comments Sensation Comments NT Muscle Tone Muscle Tone WNL Yes M6 PT-IP Treatment Start: 09/13/24 07:30 Freq: NEEDED Status: Active Protocol: Document 09/13/24 07:43 MB (Rec: 09/13/24 08:39 MB Desktop) Physical Therapy Treatment Other Treatments Other Treatment Performed Education and practice of use of incentive spirometer and ed on 10 breaths every hour when awake until his ribs are healed to help with pain and HR and to reduce risk of PE M7 PT-IP Assessment and Plan Start: 09/13/24 07:30 Freq: NEEDED Status: Active Protocol: Document 09/13/24 07:43 MB (Rec: 09/13/24 08:39 MB Desktop) PT Summary Assessment and Plan Potential Rehabilitation Potential Good Status of Condition at Evaluation Evolving Summary Impairments Pain,ROM,Balance,Bed Mobility, Transfers,Gait,Activity Tolerance Progress Towards Goals Progressing Toward Goals Assessment Summary Pt is a 79 y/o male presenting with high left sided rib pain after fall off ladder and left rib fractures and hemothorax. Pt lives home alone on [address] and has a neighbor arriving in a couple of hours. He thinks he may be able to have neighbor assistance at home. He has must trouble with bed mobility and will likely benefit from sleeping in his recliner at home. Gait with RW and steps with both hands on left rail and one step at a time require CGA. Education on LRAD, sleeping position, log rolling , and use of incentive spirometer today. He may benefit from HHPT assessment at d/c. If he is in the hospital, will attempt bed mobility again next date. PT received order for RW and provided for pt today. Goals Bed Mobility Goal Independent Transfer Goal Independent,Front Wheeled Walker Gait Goal Independent,Front Wheel Walker Gait Distance 150 Other Goals Pt will ascend and descend 3 steps with rail and mod I to allow safe home entrance. Days to Meet Goals 2 Frequency of Treatment Frequency Of Treatment Once a Day Treatment Plan Physical Therapy Treatment Plan Bed Mobility Training,Transfer Training,Gait Training, Therapeutic Exercise,Balance Retraining,Discharge Planning, Hot or Cold Pack,Neuromuscular Re-ed Recommendations To Nursing Amount of Assist Needed 1 Person Assist Discharge Recommendations PT Discharge Recommendations Home with Assistance,Home Health Equipment Needed for Home Before PT delivered RW to room 09/13/ Discharge 25 Transportation Needs at Discharge Private Vehicle - PT assist x1
[2024-09-13] MEDS: ESCITALOPRAM 10 MG TABLET PO (08:58)
[2024-09-13] MEDS: AMLODIPINE 5 MG TABLET 10 MG PO (09:00)
[2024-09-13] MEDS: azaTHIOprine 50 MG TABLET 200 MG PO (09:04)
--- NOTE | 2024-09-13 09:33 | P.HP_ITS ---
History of Present Illness History of Present Illness Date Patient Seen: 09/13/24 Time Patient Seen: 09:33 Chief complaint: Fall hemothorax rib fracture Narrative: Eugene Esqueda is a 79-year-old man who fell about 6 ft from a ladder on landing on his left side. He had worsening left lateral chest and back pain to the point where yesterday he could not get up from a chair. He called EMS and was flown to the emergency room last night. A CT scan showed left-sided rib fractures and a small left hemothorax with no pneumothorax. No abdominal injuries were noted. Today he has had some improvement in his able to get up from a chair with some difficulty. He has been able to ambulate down the halls. He is able to take a deep breath without severe pain. He lives alone on [facility]. [facility] Medical History Cellulitis of right knee Elevated blood pressure reading Encounter for screening colonoscopy History of colon polyps Left elbow pain Pain and swelling of right knee Routine general medical examination at a [facility] Surgical History Anesthesia History of nasal surgery Status post discectomy (07/13/14) Status post laminectomy (07/13/14) Status post radical cystoprostatectomy Family History Father Cancer History of heart disease Social History household members: none Smoking Status: Never smoker alcohol intake: former Meds Home Medications and Allergies Home Medications Medication Instructions Recorded Confirmed Type omeprazole 20 mg capsule,delayed 20 mg PO DAILY #90 caps 01/29/22 09/13/24 Rx release escitalopram oxalate 10 mg tablet See Rx Instructions .Route 01/31/23 09/13/24 Rx .COMPLEX #90 tabs ferrous sulfate 325 mg (65 mg 325 mg PO DAILY 04/01/24 04/10/24 History iron) tablet (Feosol) azathioprine 50 mg tablet 200 mg PO DAILY 04/10/24 09/13/24 History amlodipine 10 mg tablet 10 mg PO DAILY for blood pressure 07/20/24 09/13/24 Rx #90 tabs Allergies Allergy/AdvReac Type Severity Reaction Status Date / Time No Known Drug Allergies Allergy Verified 09/12/24 15:44 Exam Vital Signs (past 8 hours): - 09/13/24 05:10 09/13/24 07:38 Temperature 97.8 F 98.1 F Pulse Rate 66 65 Respiratory Rate 19 16 Blood Pressure 131/73 157/76 H Pulse Oximetry 97 97 Oxygen Flow Rate 0 0 Oxygen Delivery Method Room Air Oxygen Flow Rate 0 Const General: No acute distress Resp Effort & Inspection: normal respiratory effort Objective Labs 09/13/24 05:04 09/13/24 05:04 Labs: Laboratory Results - last 24 hr 09/12/24 09/12/24 09/12/24 15:45 17:33 17:48 WBC 7.2 RBC 3.68 L Hgb 14.7 Hct 40.6 L MCV 110.4 H MCH 40.1 H MCHC 36.3 H RDW 16.9 H Plt Count 129 L Neut % (Auto) 84.5 H Lymph % (Auto) 7.3 L Schuyler % (Auto) 7.7 Eos % (Auto) 0.0 L Baso % (Auto) 0.5 Neut # (Auto) 6100 Lymph # (Auto) 500 L Schuyler # (Auto) 600 Eos # (Auto) 0 Baso # (Auto) 0 RBC Morphology See below Anisocytosis 1+ H Macrocytosis 1+ H Schistocytes 1+ H PT 14.8 H INR 1.3 APTT 30 Sodium 137 Potassium 3.9 Chloride 109 H Carbon Dioxide 20 L BUN 13 Creatinine 0.49 L Estimated GFR > 60 BUN/Creatinine Ratio 26.5 H Glucose 161 H Lactate 2.8 H 1.4 Calcium 8.9 Total Bilirubin 3.2 H AST 52 ALT 34 Alkaline Phosphatase 48 Total Protein 7.0 Albumin 3.8 Globulin 3.2 Albumin/Globulin Ratio 1.2 Lipase 101 Urine RBC 5-10/hpf H Urine WBC 0-1/hpf Ur Squamous Epith Cells None seen Urine Bacteria None seen Vol Urine Centrifuged 10ml (spun) U Opiates 300ng/mL cut Positive H Ur Oxycodone Screen Negative Urine Methadone Screen Negative Ur Barbiturates Screen Negative U Tricyclic Antidepress Negative Ur Phencyclidine Scrn Negative Ur Amphetamines Screen Negative U Methamphetamines Scrn Negative Ur MDMA Scrn (Ecstasy) Negative U Benzodiazepines Scrn Negative Urine Cocaine Screen Negative U Marijuana (THC) Screen Negative Urine pH Normal Urine Specific [place] Normal Ethyl Alcohol < 10 Ur Creatinine Normal Blood Type A Positive Antibody Screen Negative 09/13/24 05:04 WBC 5.8 RBC 3.57 L Hgb 14.4 Hct 39.1 L MCV 109.5 H MCH 40.3 H MCHC 36.8 H RDW 17.0 H Plt Count 128 L Neut % (Auto) 77.9 H Lymph % (Auto) 12.2 L Schuyler % (Auto) 9.0 Eos % (Auto) 0.2 L Baso % (Auto) 0.7 Neut # (Auto) 4500 Lymph # (Auto) 700 L Schuyler # (Auto) 500 Eos # (Auto) 0 Baso # (Auto) 0 RBC Morphology Anisocytosis Macrocytosis Schistocytes PT INR APTT Sodium 139 Potassium 3.9 Chloride 107 Carbon Dioxide 28 BUN 13 Creatinine 0.56 L Estimated GFR > 60 BUN/Creatinine Ratio 23.2 H Glucose 115 H Lactate Calcium 9.0 Total Bilirubin 2.4 H AST 43 ALT 29 Alkaline Phosphatase 51 Total Protein 6.8 Albumin 3.5 Globulin 3.3 Albumin/Globulin Ratio 1.1 Lipase Urine RBC Urine WBC Ur Squamous Epith Cells Urine Bacteria Vol Urine Centrifuged U Opiates 300ng/mL cut Ur Oxycodone Screen Urine Methadone Screen Ur Barbiturates Screen U Tricyclic Antidepress Ur Phencyclidine Scrn Ur Amphetamines Screen U Methamphetamines Scrn Ur MDMA Scrn (Ecstasy) U Benzodiazepines Scrn Urine Cocaine Screen U Marijuana (THC) Screen Urine pH Urine Specific [place] Ethyl Alcohol Ur Creatinine Blood Type Antibody Screen Assessment & Plan Assessment and plan (1) Hemothorax on left: Status: Acute Plan Pneumothorax is likely less than 200 mL and therefore does not need drainage For rib fractures he needs pain control and pulmonary hygiene We will obtain a chest x-ray today to ensure there was no progression of hemothorax or pulmonary contusions He will be able to discharge home once his pain is well controlled enough to get by at home alone, most likely tomorrow. Time-Based Coding :: [TOTAL MINUTES] spent with patient and on the chart (including review of chart, obtaining history, exam, reviewing outside data, placing orders, documenting exam and treatment plan, and counseling patient) on [DATE]. PROFEE Epic Ambulatory Analyst Document charge(s): No
--- NOTE | 2024-09-13 09:36 | DI.RAD.S_ITS ---
PROCEDURE: XR CHEST 2V INDICATIONS: Left pneumothorax TECHNIQUE: 2 views of the chest were acquired. COMPARISON: [facility] ([place]), CR, XR CHEST 2V, 04/01/2024, 8:30. [facility], CR, CHEST 1 VIEW, 03/01/2017, 13:00. FINDINGS: Surgical changes and devices: None. Lungs and pleura: Lungs are clear. No pleural effusions or pneumothorax. Mediastinum: Mediastinal contours are normal. Heart size is normal. Bones and chest wall: No suspicious bony abnormalities. Soft tissues appear unremarkable. IMPRESSION: No appreciable pneumothorax. Dictated by: Jaime Girard M.D. on 09/13/2024 at 10:47 Approved by: Jaime Girard M.D. on 09/13/2024 at 10:48
[2024-09-13 13:55] VITALS: BP 143/65; PULSE 64; RESP 19; TEMP 36.3; O2SAT 99
[2024-09-13 20:00] VITALS: BP 140/66; PULSE 86; RESP 19; TEMP 36.7; O2SAT 97
[2024-09-14] MEDS: OXYCODONE IR 10 MG TABLET PO ×2 (00:44→14:29)
[2024-09-14] MEDS: IBUPROFEN 600 MG TABLET PO ×2 (00:44→12:34)
[2024-09-14] MEDS: PANTOPRAZOLE DR 20 MG TABLET PO (05:13)
[2024-09-14] MEDS: OXYCODONE IR 5 MG TABLET PO ×2 (07:00→10:19)
[2024-09-14] MEDS: azaTHIOprine 50 MG TABLET 200 MG PO (08:07)
[2024-09-14] MEDS: ESCITALOPRAM 10 MG TABLET PO (08:07)
[2024-09-14] MEDS: AMLODIPINE 5 MG TABLET 10 MG PO (08:07)
[2024-09-14 08:38] VITALS: BP 144/66; PULSE 59; RESP 16; TEMP 36.3; O2SAT 98
--- NOTE | 2024-09-14 08:54 | P.PN_ITS ---
Subjective Subjective Date Patient Seen: 09/14/24 Interval history: Chief complaint: 6 ft fall off of a ladder on left side with rib fractures local atelectasis and hemothorax History of present illness: 79-year-old gentleman who fell from a ladder while fixing his roof landed on his left side with some left-sided pain in his chest particularly when he took in a deep breath. Patient endured the pain for a couple of days but as time progressed his chest became stiffer it became more difficult for him to take in a deep breath and he became concerned about his symptoms. Patient was brought to the emergency room at [facility] for evaluation. Findings in the emergency department significant for a CT scan shows several mildly displaced left-sided rib fractures with associated overlying atelectasis and small mid left-sided hemothorax The remainder of the a CT scan of the abdomen and pelvis was nonacute showing chronic organ changes from cirrhosis Patient was placed in observation by surgery Dr. 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 does not currently drink Patient has mild coagulopathy PT INR 1.4 and platelets 136 presumably secondary to cirrhosis Patient takes azathioprine for myasthenia gravis being followed at the [facility] course: 09/13: Overnight no fevers or night sweats awakening in the night with pain but it is manageable 09/14: Patient feeling good discharge today Review of systems: No weight loss or weight gain fever or chills No sinus or ear symptoms no vertigo No difficulty swallowing No chest pain other than pleurodynia or palpitations No cough or shortness a breath or wheezing No abdominal pain nausea vomiting diarrhea No paresthesia or paresis Physical examination: Splinted breathing obviously enduring some discomfort and pain HEENT unremarkable Neck no JVD Heart sounds distant no murmurs Lungs are less splinted respirations and diminished breath sounds Abdomen area small very faint 10 cm ecchymosis on the right of the umbilicus no periumbilical ecchymoses Nondistended bowel sounds present nontender Extremities no edema Neuro alert and oriented nonfocal Assessment and plan: Blunt chest trauma with small left hemothorax focal atelectasis and rib fractures: Discharge today * Patient has been observed for 48 hours patient is probably stable and pain control appears to be sufficient to prevent further splinting and potential pneumonia * Incentive spirometry tolerated * Expect no specific complications from his chronic medical problems for this episode 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 * Mild coagulopathy and mild thrombocytopenia do not expect this to be problematic in this patient * No signs of abdominal organ injury * No restriction for non NSAID analgesia * If NSAIDs are used there is some increased potential of gastric erosions and bleeding, no signs currently Myasthenia gravis on azathioprine for immunosuppression * Continue azathioprine * No signs of exacerbation DVT prophylaxis with SCDs only Code status: * Full Code Blue Exam Vital Signs (past 8 hours): - 09/14/24 08:38 Temperature 97.4 F L Pulse Rate 59 L Respiratory Rate 16 Blood Pressure 144/66 H Pulse Oximetry 98 Oxygen Flow Rate 0 Oxygen Delivery Method Room Air Oxygen Flow Rate 0 Objective Labs 09/13/24 05:04 09/13/24 05:04 [facility] Medical History Cellulitis of right knee Elevated blood pressure reading Encounter for screening colonoscopy History of colon polyps Left elbow pain Pain and swelling of right knee Routine general medical examination at a [facility] Surgical History Anesthesia History of nasal surgery Status post discectomy (07/13/14) Status post laminectomy (07/13/14) Status post radical cystoprostatectomy Family History Father Cancer History of heart disease Social History household members: none Smoking Status: Never smoker alcohol intake: former Assessment & Plan Time-Based Coding :: [TOTAL MINUTES] spent with patient and on the chart (including review of chart, obtaining history, exam, reviewing outside data, placing orders, documenting exam and treatment plan, and counseling patient) on [DATE].
--- NOTE | 2024-09-14 09:38 | PM.DS.1 ---
History of Present Illness History of Present Illness Date Patient Seen: 09/14/24 Chief complaint: Fall hemothorax rib fracture Narrative: Chief complaint: 6 ft fall off of a ladder on left side with rib fractures local atelectasis and hemothorax History of present illness: 79-year-old gentleman who fell from a ladder while fixing his roof landed on his left side with some left-sided pain in his chest particularly when he took in a deep breath. Patient endured the pain for a couple of days but as time progressed his chest became stiffer it became more difficult for him to take in a deep breath and he became concerned about his symptoms. Patient was brought to the emergency room at [facility] for evaluation. Findings in the emergency department significant for a CT scan shows several mildly displaced left-sided rib fractures with associated overlying atelectasis and small mid left-sided hemothorax The remainder of the a CT scan of the abdomen and pelvis was nonacute showing chronic organ changes from cirrhosis Patient was placed in observation by surgery Dr. 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 Hospital course: 09/13: Overnight no fevers or night sweats awakening in the night with pain but it is manageable 09/14: Patient feeling good discharge today Review of systems: No weight loss or weight gain fever or chills No sinus or ear symptoms no vertigo No difficulty swallowing No chest pain other than pleurodynia or palpitations No cough or shortness a breath or wheezing No abdominal pain nausea vomiting diarrhea No paresthesia or paresis Physical examination: Splinted breathing obviously enduring some discomfort and pain HEENT unremarkable Neck no JVD Heart sounds distant no murmurs Lungs are less splinted respirations and diminished breath sounds Abdomen area small very faint 10 cm ecchymosis on the right of the umbilicus no periumbilical ecchymoses Nondistended bowel sounds present nontender Extremities no edema Neuro alert and oriented nonfocal Assessment and plan: Blunt chest trauma with small left hemothorax focal atelectasis and rib fractures: Discharge today Patient has been observed for 48 hours patient is probably stable and pain control appears to be sufficient to prevent further splinting and potential pneumonia Incentive spirometry tolerated Expect no specific complications from his chronic medical problems for this episode 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 Mild coagulopathy and mild thrombocytopenia do not expect this to be problematic in this patient No signs of abdominal organ injury No restriction for non NSAID analgesia If NSAIDs are used there is some increased potential of gastric erosions and bleeding, no signs currently Myasthenia gravis on azathioprine for immunosuppression Continue azathioprine No signs of exacerbation Greater than 35 minutes involved in discharge of this patient Discharge Providers Provider Date of admission: 09/12/24 17:37 Discharge Date: 09/14/24 Primary care physician: Ziggy Hamilton MD Consults: 09/12/24 17:37 Consult to Hospitalist Service Stat Comment: Consulting Provider: Joni Sorto Reason for consultation: admit obs-Nba multiple rib fx/sm hemothor; consult d/t liver-medical hx Has provider been notified: Yes 09/12/24 17:44 Consult to Physical Therapy Evaluate & Treat Comment: Physician Instructions: Evaluate and Treat 09/13/24 08:18 Consult to Physical Therapy Evaluate & Treat Comment: Physician Instructions: Rolling Walker for Home Use Discharge provider: Joni Sorto MD Exam Vital Signs (past 8 hours): - 09/14/24 08:38 Temperature 97.4 F L Pulse Rate 59 L Respiratory Rate 16 Blood Pressure 144/66 H Pulse Oximetry 98 Oxygen Flow Rate 0 Oxygen Delivery Method Room Air Oxygen Flow Rate 0 Objective Labs 09/13/24 05:04 09/13/24 05:04 [facility] Medical History Cellulitis of right knee Elevated blood pressure reading Encounter for screening colonoscopy History of colon polyps Left elbow pain Pain and swelling of right knee Routine general medical examination at a health care facility Surgical History Anesthesia History of nasal surgery Status post discectomy (07/13/14) Status post laminectomy (07/13/14) Status post radical cystoprostatectomy Family History Father Cancer History of heart disease Social History household members: none Smoking Status: Never smoker alcohol intake: former Discharge Plan Discharge Plan Patient Disposition: Home Discharge orders & Medications Prescriptions: New oxycodone 10 mg Tablet 10 mg PO Q3H PRN (Reason: Pain, Severe (7-10)) Qty: 20 0RF ibuprofen 600 mg Tablet 600 mg PO Q6H PRN (Reason: Fever/Mild Pain (1-3)) Qty: 30 0RF Continued omeprazole 20 mg capsule,delayed release(DR/EC) 20 mg PO DAILY Qty: 90 1RF escitalopram oxalate 10 mg tablet See Rx Instructions .ROUTE .COMPLEX Qty: 90 1RF Dose Instruction: TAKE 1 TABLET EVERY DAY Rx Instructions: TAKE 1 TABLET EVERY DAY amlodipine 10 mg tablet 10 mg PO DAILY Qty: 90 0RF azathioprine 50 mg tablet 200 mg PO DAILY Patient Comments: 100mg in the morning and 100mg in the evening ferrous sulfate [Feosol] 325 mg (65 mg iron) tablet 325 mg PO DAILY Follow up/Referrals: Ziggy Hamilton MD [Primary Care Provider] - Visit Report/Discharge Packet Stand Alone Forms: Patient Portal/API, Stroke Signs & Symptoms Discharge Data Primary Care Provider: Ziggy Hamilton Attending Provider: Harrison Arango Admit Date/Time: 09/12/24 17:37
--- NOTE | 2024-09-14 11:29 | CM.DPC ---
DCP Discharge Home Per MD and Surgeon, pt medically stable to d/c home today with outpt f/u and no identified barriers to discharge. Per PT, issued pt FWW for use at home and in room bedside. SW met bedside with pt and his Sig Other Carmela and they confirm they are agreeable with d/c home today and son is driving up from [employer] to transport pt home and stay a couple days and should arrive bedside after lunchtime. Sig Other will seed cone picker pt's meds at [facility] prior to discharge as she typically stays with pt on [place] but also has a property she uses for [employer]nb in [place] and is staying in [place] a couple days to take care of her property. SW provided Priority Board pass to patient as he attempted to get [facility] for discharge home today back to [place]. RN updated. Plan: Patient to d/c back to [place] today via son POV and priority board pass given and outpt f/u. SIRENA Garcia
--- NOTE | 2024-09-14 14:57 | PC.NURSE ---
Removed PIV, pt tolerated well. All belongings with patient. RUDDY Mendez provided discharge education on follow up appointments, medications, worsening symptoms, and physical activity restrictions. Pt and significant other stated all questions answered. Pt escorted via wheelchair to son's POV with significant other by RUDDY Mendez.
== END 2024-09-14 14:45 | disposition home or self-care (01) ==
LOC: ED 15:58 → AC 17:38
PROVIDERS: Admitting Provider Surgery; Emergency Provider Student in an Organized Health Care Education/Training Program; PCP Family Medicine; Referring Provider Student in an Organized Health Care Education/Training Program; Visit Provider Surgery
DX: J94.2 Hemothorax (principal); R07.81 Pleurodynia; S22.42XA Multiple fractures of ribs, left side, initial encounter for closed fracture; J98.11 Atelectasis; W11.XXXA Fall on and from ladder, initial encounter; I10 Essential (primary) hypertension; I44.0 Atrioventricular block, first degree; I51.7 Cardiomegaly; K70.30 Alcoholic cirrhosis of liver without ascites; D69.6 Thrombocytopenia, unspecified; G70.00 Myasthenia gravis without (acute) exacerbation; F10.21 Alcohol dependence, in remission; Z87.891 Personal history of nicotine dependence
CPT/HCPCS: 36415; 71046; 71275; 74177; 80053; 80305; 80320; 81003; 81015; 83605; 83690; 85025; 85610; 85730; 86850; 86900; 86901; 87086; 93005; 93010; 96361; 96374; 96375; 96376; 97161; 97535; 99232; 99284; G0378; J1171; J3010; J7500; Q9967

== ENCOUNTER → 2024-11-18 11:33 | Outpatient (CLI) | payer MEDICARE, SELFPAY ==
[2024-11-18 19:53] LABS: Alanine Aminotransferase 27 IU/L (<50); Albumin 3.6 g/dL (3.5-5.0); Albumin Globulin Ratio 1.3 (1.0-2.8); Alkaline Phosphatase 79 U/L (38-126); Blood Urea Nitrogen 10 mg/dL (9-20); Calcium 9.1 mg/dL (8.4-10.2); Carbon Dioxide 26 mmol/L (22-32); Chloride 107 mmol/L (98-107); Estimated Glomerular Filt Rate > 60 mL/min (>60); Globulin 2.7 g/dL (1.7-4.1); Glucose 106 mg/dL (70-99); HEMOLYSIS < 15 (0-50); Potassium 4.2 mmol/L (3.4-5.1); Sodium 138 mmol/L (137-145); Total Protein 6.3 g/dL (6.3-8.2)
[2024-11-18 20:12] LABS: INR 1.4 (0.9-1.3); Prothrombin Time 15.5 SECONDS (9.4-12.5)
[2024-11-18 20:14] LABS: Add Manual Diff / Slide Review NO; Hematocrit 40.0 % (41-53); Hemoglobin 14.1 g/dL (13.5-17.5); Lymphocytes Absolute Auto 600 /uL (1100-4500); Mean Corpuscular HGB Conc 35.3 % (30-36); Mean Corpuscular Hemoglobin 38.9 PG (26-34); Mean Corpuscular Volume 110.1 fL (80-100); Platelet Count 165 X10^3/uL (150-400)
== END ==
PROVIDERS: Physician Assistant
DX: K70.30 Alcoholic cirrhosis of liver without ascites (principal)
CPT/HCPCS: 80053; 82105; 82248; 85025; 85610